=== PATIENT | female | born 1945 | race Caucasian/White ===

== ENCOUNTER → 2016-05-07 | Outpatient (CLI) | payer BC ==
[~2016-05-07] MED LIST: ALBU1AER9 INH; ALBU1NEB10 INH; ALLERGY SHOTS; BXN500 PO; CETI10TA84 PO; EPP3/2 IM; FLUT0.0529 NAE; GLC/500 PO; GLIM1TAB2 PO; MESA1CAP2 PO; OMAL150S SC; PRED10TA PO; PRLSR20 PO; SIMV20TA2 PO; SNG10 PO; SYMIN160 INH; TIOTCAP INH; ZNTT/150 PO
[2016-05-07 11:16] LABS: ALT/SGPT 33 U/L (12-78); AST/SGOT 17 U/L (15-37); BLOOD UREA NITROGEN 15 mg/dl (7-18); BUN/CREATININE RATIO 15.7 (10-20); CALCIUM 8.7 mg/dl (8.5-10.1); CARBON DIOXIDE 32 mmol/L (21-32); CHLORIDE 103 mmol/L (98-107); CREATININE 0.96 mg/dl (0.60-1.20); GLUCOSE 113 mg/dl (70-99); POTASSIUM 3.8 mmol/L (3.5-5.1); SODIUM 143 mmol/L (136-145)
[2016-05-07 11:19] LABS: CHOLESTEROL 190 mg/dl (0-200); CHOLESTEROL/HDL RATIO 2.6; HDL CHOLESTEROL 72 mg/dl; LDL CHOLESTEROL CALCULATED 82 mg/dl; TRIGLYCERIDES 182 mg/dl (0-150); VERY LOW DENSITY LIPOPROT CALC 36 mg/dl
[2016-05-07 11:37] LABS: ESTIMATED AVERAGE GLUCOSE 174 mg/dl; HA1C FLAG Normal (Normal)
== END | disposition home or self-care (01) ==
LOC: C.LABBC 07:43
PROVIDERS: ATTEND Internal Medicine
DX: Z11.59 Encounter for screening for other viral diseases (principal); E11.9 Type 2 diabetes mellitus without complications; E78.00 Pure hypercholesterolemia, unspecified

== ENCOUNTER → 2016-07-02 | Outpatient (CLI) | payer BC ==
--- NOTE | 2016-07-02 13:04 | MAMMOGRAPHY REPORT ---
BILATERAL DIGITAL SCREENING MAMMOGRAM WITH CAD: 07/02/2016 CLINICAL HISTORY: Routine screening. Patient has no complaints. TECHNIQUE: Current study was also evaluated with a Computer Aided Detection (CAD) system. Bilatera l CC and MLO views were obtained. COMPARISON: Comparison is made to exams dated: 07/01/2015 mammogram, 06/27/2014 mammogram, 06/26/2013 mammogram, 06/22/2012 mammogram, 06/22/2011 mammogram, and 06/19/2010 mammogram - [facility] enter. BREAST COMPOSITION: There are scattered areas of fibroglandular density in both breasts. FINDINGS: No suspicious masses, calcifications, or areas of architectural distortion are noted in e ither breast. There has been no significant interval change compared to prior exams. Scattered bilat eral benign-appearing calcifications are not significantly changed. Left superior breast asymmetry on the MLO view is stable dating back to the 2007 exam. IMPRESSION: ACR BI-RADS CATEGORY 2: BENIGN There is no mammographic evidence of malignancy. A 1 year screening mammogram is recommended. The p atient will receive written notification of the results. Approximately 10% of breast cancers are not detected with mammography. A negative mammographic repor t should not delay biopsy if a clinically suggestive mass is present. Vi Orozco M.D. /:07/02/2016 10:21:39 Green Coffee Blender: Yoselin FERNANDEZ(Marcello)(Cuca), [facility] letter sent: Normal 1/2 BI-RADS Code: ACR BI-RADS Category 2: Benign
== END | disposition home or self-care (01) ==
LOC: C.MAMM 09:54
PROVIDERS: ATTEND Internal Medicine
DX: Z12.31 Encounter for screening mammogram for malignant neoplasm of breast (principal)

== ENCOUNTER → 2016-08-21 | Outpatient (CLI) | payer BC ==
[2016-08-21 10:54] LABS: BASO % 0.9 %; BASO ABS # 0.07 K/uL (0-0.2); COMPLETE YES; EOS % 3.3 %; IG% 0.4 %; LYMPH % 21.1 %; LYMPH ABS # 1.66 K/uL (1.2-3.4); MEAN CELL VOLUME 94.6 fL (80-100); MEAN CORPUSCULAR HEMOGLOBIN 29.2 pg (25-34); MEAN CORPUSCULAR HGB CONC 30.9 g/dl (32-36); MEAN PLATELET VOLUME 10.5 fL (7.4-10.4); MONO % 11.6 %; NEUT % 62.7 %; PLATELET COUNT 261 K/uL (130-400); RED BLOOD COUNT 4.65 M/uL (4.2-5.4); WHITE BLOOD COUNT 7.87 K/uL (4.8-10.8)
[2016-08-21 11:17] LABS: ALT/SGPT 27 U/L (12-78); AST/SGOT 17 U/L (15-37); BLOOD UREA NITROGEN 16 mg/dl (7-18); BUN/CREATININE RATIO 20.2 (10-20); CALCIUM 8.5 mg/dl (8.5-10.1); CARBON DIOXIDE 29 mmol/L (21-32); CHLORIDE 107 mmol/L (98-107); CREATININE 0.79 mg/dl (0.60-1.20); GLUCOSE 101 mg/dl (70-99); POTASSIUM 3.5 mmol/L (3.5-5.1); SODIUM 144 mmol/L (136-145)
[2016-08-21 11:33] LABS: ESTIMATED AVERAGE GLUCOSE 146 mg/dl; HA1C FLAG Normal (Normal)
[2016-08-21 11:34] LABS: RATIO 5.1 mcg/mg (0-30.0)
--- NOTE | 2016-08-27 09:01 | CODING QUERY MEDICAL NECESSITY ---
CQSUPPORTING DIAGNOSIS NEEDED A supporting diagnosis is required for the test/procedure performed on this patient in order for us to be reimbursed by the patient's insurance. Please provide a supporting diagnosis for the following test/procedure listed below next to the test name along with your signature. *If there is no additional diagnosis for this patient that would support the following test/procedure please document that below next to the test/procedure. Test(s)/Procedure(s) that require a supporting diagnosis: DOS 08/21/16 VITAMIN B12 Provider Signature: Date: Thank you Isis Lester [employer] Information Management Once completed, please kindly fax back to [phone] For questions please call [phone]
--- NOTE | 2016-08-27 09:42 | CODING QUERY MEDICAL NECESSITY ---
CQSUPPORTING DIAGNOSIS NEEDED A supporting diagnosis is required for the test/procedure performed on this patient in order for us to be reimbursed by the patient's insurance. Please provide a supporting diagnosis for the following test/procedure listed below next to the test name along with your signature. *If there is no additional diagnosis for this patient that would support the following test/procedure please document that below next to the test/procedure. Test(s)/Procedure(s) that require a supporting diagnosis: DOS 08/21/16 VITAMIN B12 Provider Signature: Date: Thank you Isis Lester [email or web address] Information Management Once completed, please kindly fax back to [phone] For questions please call [phone]
== END | disposition home or self-care (01) ==
LOC: C.LABBC 07:40
PROVIDERS: ATTEND Internal Medicine
DX: E11.9 Type 2 diabetes mellitus without complications (principal); K51.90 Ulcerative colitis, unspecified, without complications

== ENCOUNTER → 2016-09-07 | Outpatient (CLI) | payer BC ==
[2016-09-07 11:36] LABS: ESTIMATED AVERAGE GLUCOSE 143 mg/dl; HA1C FLAG Normal (Normal)
[2016-09-07 11:49] LABS: IMMUNOGLOBULN M 88.4 mg/dL (40-230)
[2016-09-10 19:43] LABS: PNEUMOCOCCAL IGG TYPE 1 3.9; PNEUMOCOCCAL IGG TYPE 12(12F 1.1; PNEUMOCOCCAL IGG TYPE 14 6.7; PNEUMOCOCCAL IGG TYPE 19(19F 2.1; PNEUMOCOCCAL IGG TYPE 23(23F 5.8; PNEUMOCOCCAL IGG TYPE 26 (6B 2.7; PNEUMOCOCCAL IGG TYPE 3 6.4; PNEUMOCOCCAL IGG TYPE 4 2.2; PNEUMOCOCCAL IGG TYPE 5 12.5; PNEUMOCOCCAL IGG TYPE 51 (7F 5.1; PNEUMOCOCCAL IGG TYPE 56(18C 1.5; PNEUMOCOCCAL IGG TYPE 68 (9V 13.2; PNEUMOCOCCAL IGG TYPE 8 2.2; PNEUMOCOCCAL IGG TYPE 9 (9N) 14.8
--- NOTE | 2016-09-14 09:53 | CODING QUERY MEDICAL NECESSITY ---
CQSUPPORTING DIAGNOSIS NEEDED A supporting diagnosis is required for the test/procedure performed on this patient in order for us to be reimbursed by the patient's insurance. Please provide a supporting diagnosis for the following test/procedure listed below next to the test name along with your signature. *If there is no additional diagnosis for this patient that would support the following test/procedure please document that below next to the test/procedure. Test(s)/Procedure(s) that require a supporting diagnosis: DOS 09/07/16 GLYCATED HEMOGLOBIN Provider Signature: Date: Thank you Isis Lester [employer] Information Management Once completed, please kindly fax back to [phone] For questions please call [phone]
== END | disposition home or self-care (01) ==
LOC: C.LABBC 07:40
PROVIDERS: ATTEND Internal Medicine Pulmonary Disease
DX: J45.909 Unspecified asthma, uncomplicated (principal); J30.81 Allergic rhinitis due to animal (cat) (dog) hair and dander; J30.89 Other allergic rhinitis; J30.1 Allergic rhinitis due to pollen; E11.9 Type 2 diabetes mellitus without complications

== ENCOUNTER → 2016-12-15 | Outpatient (CLI) | payer BC ==
--- NOTE | 2016-12-15 10:21 | DIAGNOSTIC IMAGING REPORT ---
(CHEST) THORAX WITHOUT CLINICAL HISTORY: 71 years-old Female presenting with ASTHMA,ALLERGIC RHINITIS,LUNG INFECTIONS. TECHNIQUE: Multidetector CT imaging of the chest was performed without the use of intravenous contrast. IV contrast: None. A dose lowering technique was used consistent with the principles of ALARA (as low as reasonably achievable). COMPARISON: 04/26/2014. CT DOSE (mGy.cm): The estimated cumulative dose is 431.55 mGy.cm. 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 On soft tissue windows, normal thyroid and thoracic inlet. No axillary, supraclavicular, or mediastinal lymphadenopathy. Evaluation of the yasmin limited without intravenous contrast. Atherosclerosis of aortic arch. Normal heart size. Coronary artery calcification. No pericardial or pleural effusion. Cholelithiasis. Suspected hepatic steatosis. Small hiatal hernia. On lung windows, few bandlike opacities at the lung bases likely atelectasis or scarring. Subpleural solid 5 mm nodule in the paramediastinal left lower lobe (series 4 image 178). No convincing evidence of fibrotic change. No bronchiectasis. Mild bronchial wall thickening most prominently in the posterior basal right lower lobe. Respiratory motion at the lung bases slightly degrades evaluation. Several calcified granulomas noted in the right middle lobe. On bone windows, degenerative changes of the thoracic spine. IMPRESSION: 1. Few bandlike opacities at the lung bases likely atelectasis or scarring. No evidence of fibrotic lung disease. 2. 5 mm solid pulmonary nodule in the left lower lobe. Follow-up per [place] Society 2017 recommendations below. 3. Mild bronchial wall thickening. 4. Suspected hepatic steatosis. Please refer to below summary of Fleischner Society 2017 recommendations for follow-up of incidental CT nodules (H Rosa M et al. Guidelines for management of incidental pulmonary nodules detected on CT images: From the Fleischner Society 2017. Radiology 2017; 284: 228-243.) SOLID NODULES Single nodule; size < 6 mm * Low risk patients: No routine follow-up * High risk patients: Optional CT at 12 months Single nodule; size 6-8 mm * Low risk patients: CT at 6-12 months, then consider CT at 18-24 months * High risk patients: CT at 6-12 months, then at 18-24 months Single nodule; size > 8 mm * Either low or high risk patients: Considered CT at 3 months, PET/CT, or tissue sampling Multiple nodules; size < 6 mm * Low risk patients: No routine follow up * High risk patients: Optional CT at 12 months Multiple nodules; size 6-8 mm * Low risk patients: CT at 3-6 months, then consider CT at 18-24 months * High risk patients: CT at 3-6 months, then at 18-24 months Multiple nodules; size > 8 mm * Low risk patients: CT at 3-6 months, then consider at 18-24 months * High risk patients: CT at 3-6 months, then at 18-24 months Note: These guidelines apply to incidental nodules. These guidelines do not apply to patients younger than 35 years, immunocompromised patients, or patients with cancer. * Low risk patients: Minimal or absent history of smoking and/or other known risk factors * High risk patients: History of smoking, exposure to other carcinogens, emphysema, fibrosis, upper lobe location, family history of lung cancer, etc. * If a nodule up to 8 mm is partly solid or is ground glass, further follow-up is required after 24 months to exclude possible slow growing adenocarcinoma. SUBSOLID NODULES Single ground-glass nodule * Nodule size < 6 mm: No routine follow-up * Nodule size > or = 6 mm: CT at 6-12 months to confirm persistence, then CT every 2 years until 5 years Single part-solid nodule * Nodule size < 6 mm: No routine follow-up * Nodules size > or = 6 mm: CT at 3-6 months to confirm persistence. If unchanged and solid component remains < 6 mm, annual CT should be performed for 5 years Multiple nodules * Nodule size < 6 mm: CT at 3-6 months. If stable, consider CT at 2 and 4 years. * Nodules size > or = 6 mm: CT at 3-6 months. Subsequent management based on the most suspicious nodule(s) Electronically signed by: Guzman Centeno M.D. 12/15/2016 10:20 AM Dictated Date/Time: 12/15/2016 10:14 AM
== END | disposition home or self-care (01) ==
LOC: C.CTS 10:01
PROVIDERS: ATTEND Internal Medicine Allergy & Immunology
DX: R91.1 Solitary pulmonary nodule (principal); J84.9 Interstitial pulmonary disease, unspecified

== ENCOUNTER → 2016-12-22 | Outpatient (CLI) | payer BC ==
[2016-12-22 11:02] LABS: BASO % 1.1 %; BASO ABS # 0.12 K/uL (0-0.2); COMPLETE YES; EOS % 17.4 %; HEMATOCRIT 41.6 % (37-47); IG% 0.4 %; LYMPH % 13.3 %; MEAN CELL VOLUME 91.6 fL (80-100); MEAN CORPUSCULAR HEMOGLOBIN 29.5 pg (25-34); MEAN CORPUSCULAR HGB CONC 32.2 g/dl (32-36); MEAN PLATELET VOLUME 10.3 fL (7.4-10.4); MONO % 9.2 %; NEUT % 58.6 %; PLATELET COUNT 274 K/uL (130-400); RED BLOOD COUNT 4.54 M/uL (4.2-5.4); WHITE BLOOD COUNT 10.49 K/uL (4.8-10.8)
[2016-12-22 11:13] LABS: ALT/SGPT 27 U/L (12-78); BLOOD UREA NITROGEN 13 mg/dl (7-18); BUN/CREATININE RATIO 18.6 (10-20); CALCIUM 8.9 mg/dl (8.5-10.1); CARBON DIOXIDE 28 mmol/L (21-32); CHLORIDE 106 mmol/L (98-107); CHOLESTEROL 142 mg/dl (0-200); ESTIMATED AVERAGE GLUCOSE 148 mg/dl; GLUCOSE 115 mg/dl (70-99); HA1C FLAG Normal (Normal); POTASSIUM 3.4 mmol/L (3.5-5.1); SODIUM 139 mmol/L (136-145); TRIGLYCERIDES 140 mg/dl (0-150); VERY LOW DENSITY LIPOPROT CALC 28 mg/dl
[2016-12-22 11:17] LABS: ALKALINE PHOSPHATASE 66 U/L (45-117); AST/SGOT 23 U/L (15-37); HDL CHOLESTEROL 47 mg/dl; LDL CHOLESTEROL CALCULATED 67 mg/dl
== END | disposition home or self-care (01) ==
LOC: C.LABBC 08:12
PROVIDERS: ATTEND Internal Medicine
DX: E78.00 Pure hypercholesterolemia, unspecified (principal); K51.90 Ulcerative colitis, unspecified, without complications; E11.9 Type 2 diabetes mellitus without complications

== ENCOUNTER → 2017-04-01 | Outpatient (CLI) | payer BC ==
[2017-04-01 11:16] LABS: HEMOGLOBIN A1C 7.3 % (4.5-5.6)
[2017-04-01 11:29] LABS: BLOOD UREA NITROGEN 14 mg/dl (7-18); CALCIUM 8.5 mg/dl (8.5-10.1); CARBON DIOXIDE 30 mmol/L (21-32); CREATININE 0.85 mg/dl (0.60-1.20); GLUCOSE 122 mg/dl (70-99); POTASSIUM 3.9 mmol/L (3.5-5.1); SODIUM 139 mmol/L (136-145)
== END | disposition home or self-care (01) ==
LOC: C.LABBC 07:48
PROVIDERS: ATTEND Internal Medicine
DX: E11.9 Type 2 diabetes mellitus without complications (principal)

== ENCOUNTER → 2017-06-17 | Outpatient (CLI) | payer BC ==
[~2017-06-17] MED LIST changes: +RANI150T85 PO; -ZNTT/150 PO
--- NOTE | 2017-06-17 11:35 | DIAGNOSTIC IMAGING REPORT ---
CHEST 2 VIEWS ROUTINE CLINICAL HISTORY: Pneumonia. COMPARISON STUDY: Chest radiograph May 04, 2017. FINDINGS: Lung volumes are normal. No pneumothorax or pleural effusion is noted. There is no evidence for pulmonary edema. Cardiomediastinal silhouette is normal. Hazy bibasilar opacities favor epicardial fat pad within correlating with prior CT. Left lower lung opacity shown on exam of May 04, 2017 is no longer visualized. IMPRESSION: 1. No acute cardiopulmonary findings. 2. Resolution of left lower lung airspace opacity since exam of May 04, 2017. Electronically signed by: Shawn Thomas M.D. 06/17/2017 11:34 AM Dictated Date/Time: 06/17/2017 11:32 AM
== END | disposition home or self-care (01) ==
LOC: C.RAD1850 11:22
PROVIDERS: ATTEND Physician Assistant
DX: J18.9 Pneumonia, unspecified organism (principal)

== ENCOUNTER → 2017-06-23 | Outpatient (CLI) | payer BC ==
[2017-06-23 11:06] LABS: BASO % 0.4 %; BASO ABS # 0.04 K/uL (0-0.2); EOS % 3.9 %; EOS ABS # 0.44 K/uL (0-0.5); HEMATOCRIT 43.5 % (37-47); IG# 0.07 K/uL (0.00-0.02); LYMPH % 28.2 %; LYMPH ABS # 3.17 K/uL (1.2-3.4); MEAN CORPUSCULAR HEMOGLOBIN 30.2 pg (25-34); MEAN CORPUSCULAR HGB CONC 32.2 g/dl (32-36); MEAN PLATELET VOLUME 10.2 fL (7.4-10.4); MONO % 12.4 %; MONO ABS # 1.39 K/uL (0.11-0.59); NEUT % 54.5 %; NEUT ABS # 6.13 K/uL (1.4-6.5); PLATELET COUNT 258 K/uL (130-400); RED CELL DISTRIBUTION WIDTH CV 14.3 % (11.5-14.5); WHITE BLOOD COUNT 11.24 K/uL (4.8-10.8)
[2017-06-23 11:49] LABS: ALT/SGPT 35 U/L (12-78); AST/SGOT 18 U/L (15-37); BLOOD UREA NITROGEN 15 mg/dl (7-18); CARBON DIOXIDE 30 mmol/L (21-32); CREATININE 0.93 mg/dl (0.60-1.20); GLUCOSE 104 mg/dl (70-99); POTASSIUM 3.6 mmol/L (3.5-5.1); SODIUM 138 mmol/L (136-145)
[2017-06-23 11:50] LABS: CHOLESTEROL 171 mg/dl (0-200); LDL CHOLESTEROL CALCULATED 73 mg/dl
== END | disposition home or self-care (01) ==
LOC: C.LABBC 07:24
PROVIDERS: ATTEND Internal Medicine
DX: E11.9 Type 2 diabetes mellitus without complications (principal); E78.00 Pure hypercholesterolemia, unspecified; K51.90 Ulcerative colitis, unspecified, without complications

== ENCOUNTER → 2017-07-06 | Outpatient (CLI) | payer BC ==
--- NOTE | 2017-07-07 15:29 | MAMMOGRAPHY REPORT ---
BILATERAL DIGITAL SCREENING MAMMOGRAM TOMOSYNTHESIS WITH CAD: 07/06/2017 CLINICAL HISTORY: Routine screening. TECHNIQUE: Breast tomosynthesis in addition to standard 2D mammography was performed. Current study was also evaluated with a Computer Aided Detection (CAD) system. COMPARISON: Comparison is made to exams dated: 07/02/2016 mammogram, 07/01/2015 mammogram, 06/27/2014 m ammogram, 06/26/2013 mammogram, 06/22/2012 mammogram, and 06/22/2011 mammogram - [facility] nter. BREAST COMPOSITION: There are scattered areas of fibroglandular density in both breasts. FINDINGS: No suspicious mass, architectural distortion or cluster of microcalcifications is seen. IMPRESSION: ACR BI-RADS CATEGORY 1: NEGATIVE There is no mammographic evidence of malignancy. A 1 year screening mammogram is recommended. The pa tient will receive written notification of the results. Approximately 10% of breast cancers are not detected with mammography. A negative mammographic report should not delay biopsy if a clinically suggestive mass is present. Fabiola montalvo/iftikhar:07/06/2017 16:03:26 Trolley Worker: Tim Mccain RT(R)(M), [facility] letter sent: Normal 1/2 BI-RADS Code: ACR BI-RADS Category 1: Negative
== END | disposition home or self-care (01) ==
LOC: C.MAMM 09:50
PROVIDERS: ATTEND Internal Medicine
DX: Z12.31 Encounter for screening mammogram for malignant neoplasm of breast (principal)

== ENCOUNTER 2017-07-20 15:11 | Inpatient (IN) | payer BC, OTHER ==
[~2017-07-20] VITALS: Ht 157.5 cm; Wt 85.5 kg
[2017-07-20] MEDS ORDERED: METHYLPREDNISOLONE 125 MG VIAL IV STA (15:26)
[2017-07-20] MEDS ORDERED: ALBUT/IPRATROP 3MG/0.5MG NEB 3 ML VIAL INH ONE (15:30)
--- NOTE | 2017-07-20 15:55 | DIAGNOSTIC IMAGING REPORT ---
CHEST ONE VIEW PORTABLE HISTORY: 71 years-old Female productive cough SOB hx asthma acute cough with asthma COMPARISON: Chest radiograph 06/17/2017 TECHNIQUE: Portable AP view of the chest FINDINGS: Cardiomediastinal and hilar silhouettes are within normal limits. No pneumothorax or pleural effusion. Subsegmental left basilar opacities. Bones of the chest appear grossly intact. Degenerative changes of the shoulders and spine. IMPRESSION: Subsegmental left basilar opacities favor atelectasis. The above report was generated using voice recognition software. It may contain grammatical, syntax or spelling errors. Electronically signed by: Usama Garcia M.D. 07/20/2017 3:54 PM Dictated Date/Time: 07/20/2017 3:53 PM
[2017-07-20] MEDS ORDERED: FLUT1INH7 INH (16:31)
[2017-07-20] MEDS ORDERED: LEVO1TAB33 PO (16:31)
[2017-07-20] MEDS ORDERED: SPRIN/30 INH (16:31)
[2017-07-20] MEDS ORDERED: SIMV-151 PO (16:31)
[2017-07-20] MEDS ORDERED: RANI150T2 PO (16:31)
[2017-07-20] MEDS ORDERED: ALBINS/ INH (16:31)
[2017-07-20] MEDS ORDERED: NZRCR TOP (16:31)
[2017-07-20] MEDS ORDERED: FLNIN/ NAE (16:31)
[2017-07-20] MEDS ORDERED: CYAN100T PO (16:31)
[2017-07-20] MEDS ORDERED: ALBUTEROL 90 MCG INH (16:31)
[2017-07-20] MEDS ORDERED: NYST100016 TOP (16:31)
[2017-07-20] MEDS ORDERED: OMEP20CA9 PO (16:31)
[2017-07-20] MEDS ORDERED: ASC400 PO (16:31)
[2017-07-20 16:44] LABS: HEMATOCRIT 41.9 % (37-47); HEMOGLOBIN 13.7 g/dL (12.0-16.0); MEAN CELL VOLUME 91.9 fL (80-100); MEAN CORPUSCULAR HGB CONC 32.7 g/dl (32-36); MEAN PLATELET VOLUME 9.8 fL (7.4-10.4); PLATELET COUNT 247 K/uL (130-400); RED CELL DISTRIBUTION WIDTH CV 13.9 % (11.5-14.5); WHITE BLOOD COUNT 10.43 K/uL (4.8-10.8)
[2017-07-20 16:48] VITALS: PULSE 77; O2SAT 94
[2017-07-20] MEDS ORDERED: MAGNESIUM SULFATE 1GM / D5W 100 ML IV STA (16:53)
[2017-07-20] MEDS ORDERED: CEFTRIAXONE SOD INJ 1 GM ADDVIAL IV STA (16:56)
[2017-07-20 16:58] LABS: INFLUENZA B ANTIGEN POS for Influ B (NEG)
[2017-07-20] MEDS ORDERED: AZITHROMYCIN IV 500 MG in DEXTROSE 5% 250ML 250 ML IV ONE (17:00)
[2017-07-20 17:03] LABS: BASO % 0.1 %; BASO ABS # 0.01 K/uL (0-0.2); CALCIUM 8.8 mg/dl (8.5-10.1); CREATININE 0.86 mg/dl (0.60-1.20); IG# 0.04 K/uL (0.00-0.02); LYMPH % 9.1 %; LYMPH ABS # 0.95 K/uL (1.2-3.4); MONO % 12.4 %; MONO ABS # 1.29 K/uL (0.11-0.59); NEUT ABS # 8.14 K/uL (1.4-6.5); POTASSIUM 3.3 mmol/L (3.5-5.1)
[2017-07-20] MEDS ORDERED: MEPO1INJ INJ (17:04)
[2017-07-20] MEDS ORDERED: MONT1TAB3 PO (17:05)
[2017-07-20] MEDS ORDERED: POTASSIUM CHLORIDE 10 MEQ TABCR PO STA (17:07)
--- NOTE | 2017-07-20 17:19 | EMERGENCY ROOM VISIT NOTE ---
History First contact with patient: 15:16 Chief Complaint: SHORTNESS OF BREATH Stated Complaint: SOB, COUGHING, LOW OXYGEN LEVEL History of Present Illness The patient is a 71 year old female who presents to the Emergency Room with complaints of cough that is occasionally productive and shortness of breath for the last 3 days. The patient is unsure if she is running a fever. She has a history of asthma. She has been trying her nebulizer treatment and typical asthma medications with no relief. She is not typically on any oxygen at home. She denies any recent admission to the hospital for her asthma. She has been taking Levaquin and prednisone for the last 3 days with no relief. Review of Systems 10 system review performed and negative unless noted in HPI or below Past Medical/Surgical History Medical Problems: (1) Asthma (2) Bronchitis (3) Pneumonia Diabetes Family History FH: HTN (hypertension) FH: cancer FH: diabetes mellitus FHx: gallbladder disease FHx: heart disease Social History Smoking Status: Never Smoker Alcohol Use: none Marital Status: Housing Status: lives with family Occupation Status: unemployed Current/Historical Medications Scheduled Cetirizine (Zyrtec), 10 MG PO QAM Cyanocobalamin (Vitamin B-12), 1 TAB PO DAILY Fluticasone Furoate-Vilanterol (Breo Ellipta 200-25 Mcg/INH), 1 PUFF INH DAILY Fluticasone Propionate (Fluticasone Propionate), 1-2 SPRAY ESTEFANÍA DAILY Glimepiride (Glimepiride), 1 MG PO Q12 Mepolizumab (Nucala), 1 DOSE INJ MONTHLY Mesalamine (Delzicol), 800 MG PO QID Metformin Hcl (Glucophage), 500 MG PO BIDM Metformin Hcl (Glucophage), 1,000 MG PO DAILY Montelukast Sodium (Singulair), 10 MG PO DAILY Nystatin (Topical) (Nyamyc), 1 APPLN TOP 2-3XSDAY Omeprazole (Prilosec), 20 MG PO DAILY Prednisone Tab (Prednisone), PO TAPER PRN Ranitidine HCl (Ranitidine HCl), 150 MG PO BID Simvastatin (Simvastatin), 20 MG PO DAILY Tiotropium Roscoe (Spiriva Handihaler), 1 CAP INH DAILY Scheduled PRN Albuterol Sulf (Proventil 0.083% 2.5MG/3ML), 2.5 MG INH QID PRN for SOB/Wheezing Ketoconazole (Ketoconazole), 1 APPLN TOP DAILY PRN for Levofloxacin (Levaquin), 500 MG PO DAILY PRN for CONGESTION [Proair 90 Mcg Act], 2 PUFF INH Q4 PRN for SOB/Wheezing Physical Exam Vital Signs Date Time Temp Pulse Resp B/P (MAP) Pulse Ox O2 Delivery O2 Flow Rate FiO2 07/20/17 17:49 115 20 164/86 94 Nasal Cannula 3.0 07/20/17 17:38 95 Nasal Cannula 2.0 07/20/17 17:37 87 Room Air 07/20/17 16:48 77 20 94 Room Air 07/20/17 16:15 115 07/20/17 16:11 121 143/95 96 Room Air 07/20/17 15:56 97 Partial Rebreather 07/20/17 15:56 98 07/20/17 15:14 37.1 115 22 155/85 88 Room Air Physical Exam GENERAL: 71-year-old female, obviously tachypneic, in mild respiratory distress SKIN: The skin was without rashes, erythema, edema, or bruising. HEAD: Normocephalic atraumatic. MOUTH: Mucous membranes slightly dry NECK: Supple without nuchal rigidity. No lymphadenopathy. Cervical spine is nontender. No JVD. HEART: Regular rate and rhythm without murmurs gallops or rubs. LUNGS: Diffuse wheeze with rhonchorous breath sounds at the bases left greater than right ABDOMEN: Positive bowel sounds x 4.Soft, nontender, without organomegaly. No guarding or rebound tenderness. MUSCULOSKELETAL: No muscle atrophy, erythema, or edema noted. Strength 5/5 throughout. NEURO: Patient was alert and oriented to person place and time. Normal sensation to touch. No focal neurological deficits. Medical Decision & Procedures ER Provider Diagnostic Interpretation: Chest x-ray IMPRESSION: Subsegmental left basilar opacities favor atelectasis. The above report was generated using voice recognition software. It may contain grammatical, syntax or spelling errors. Electronically signed by: Usama Garcia M.D. 07/20/2017 3:54 PM Dictated Date/Time: 07/20/2017 3:53 PM Laboratory Results 07/20/17 16:25 Red Blood Count 4.56, Mean Corpuscular Volume 91.9, Mean Corpuscular Hemoglobin 30.0, Mean Corpuscular Hemoglobin Concent 32.7, Mean Platelet Volume 9.8, Neutrophils (%) (Auto) 78.0, Lymphocytes (%) (Auto) 9.1, Monocytes (%) (Auto) 12.4, Eosinophils (%) (Auto) 0.0, Basophils (%) (Auto) 0.1, Neutrophils # (Auto ) 8.14, Lymphocytes # (Auto) 0.95, Monocytes # (Auto) 1.29, Eosinophils # (Auto ) 0.00, Basophils # (Auto) 0.01 07/20/17 16:25 Test 07/20/17 16:12 07/20/17 16:25 Influenza Type A Antigen Neg for Influ A (NEG) Influenza Type B Antigen POS for Influ B (NEG) White Blood Count 10.43 K/uL (4.8-10.8) Red Blood Count 4.56 M/uL (4.2-5.4) Hemoglobin 13.7 g/dL (12.0-16.0) Hematocrit 41.9 % (37-47) Mean Corpuscular Volume 91.9 fL (80-100) Mean Corpuscular Hemoglobin 30.0 pg (25-34) Mean Corpuscular Hemoglobin Concent 32.7 g/dl (32-36) Platelet Count 247 K/uL (130-400) Mean Platelet Volume 9.8 fL (7.4-10.4) Neutrophils (%) (Auto) 78.0 % Lymphocytes (%) (Auto) 9.1 % Monocytes (%) (Auto) 12.4 % Eosinophils (%) (Auto) 0.0 % Basophils (%) (Auto) 0.1 % Neutrophils # (Auto) 8.14 K/uL (1.4-6.5) Lymphocytes # (Auto) 0.95 K/uL (1.2-3.4) Monocytes # (Auto) 1.29 K/uL (0.11-0.59) Eosinophils # (Auto) 0.00 K/uL (0-0.5) Basophils # (Auto) 0.01 K/uL (0-0.2) RDW Standard Deviation 47.0 fL (36.4-46.3) RDW Coefficient of Variation 13.9 % (11.5-14.5) Immature Granulocyte % (Auto) 0.4 % Immature Granulocyte # (Auto) 0.04 K/uL (0.00-0.02) Anion Gap 9.0 mmol/L (3-11) Est Creatinine Clear Calc Drug Dose 63.0 ml/min Estimated GFR () 79.9 Estimated GFR (Non- 68.9 BUN/Creatinine Ratio 19.7 (10-20) Calcium Level 8.8 mg/dl (8.5-10.1) Medications Administered Medications (Trade) Dose Ordered Sig/Julee Route Start Time Stop Time Status Last Admin Dose Admin Albuterol/ Ipratropium (Duoneb) 12 ml ONE ONCE INH 07/20/17 15:30 07/20/17 15:31 DC 07/20/17 15:41 12 ML Methylprednisolone Sodium Succinate (Solu-Medrol IV) 125 mg NOW STAT IV 07/20/17 15:26 07/20/17 15:29 DC 07/20/17 16:18 125 MG Magnesium Sulfate 100 ml @ 100 mls/hr NOW STAT IV 07/20/17 16:53 07/20/17 17:52 DC 07/20/17 17:44 100 MLS/HR Azithromycin 500 mg/Dextrose 255 ml @ 125 mls/hr ONE ONCE IV 07/20/17 17:00 07/20/17 19:02 07/20/17 17:50 125 MLS/HR Ceftriaxone Sodium (Rocephin Inj) 1 gm NOW STAT IV 07/20/17 16:56 07/20/17 16:57 DC 07/20/17 17:43 1 GM Potassium Chloride (Klor-Con M10) 40 meq NOW STAT PO 07/20/17 17:07 07/20/17 17:08 DC 07/20/17 17:43 40 MEQ ED Course Patient was seen and examined Vital signs including blood pressure were reviewed medications list was verified with patient Labs were obtained, and a saline lock was established The patient was given an hour-long DuoNeb. She was medicated with Solu-Medrol 125 mg IV. Upon reassessment, she was still having difficulty breathing. She was ordered mag sulfate 1 g over 20 minutes The patient was ordered Zithromax 500 mg IV and Rocephin 1 g IV line the case was discussed with my supervising physician, who is in agreement with my plan It was subsequently discussed with case management and the [facility] team. They agreed to evaluate the patient for further management Medical Decision Differential diagnosis: Bronchitis, pneumonia, asthma exacerbation, allergies, influenza This patient is a 71-year-old female that presents to the emergency department with complaints of difficulty breathing and productive cough. On exam, she was obviously tachypneic and hypoxic on room air. She had rhonchi and wheezing. The patient's workup reveals a positive influenza B. I also believe she has pneumonia. The patient was treated aggressively in the emergency department, and still desaturated with ambulation. I do not feel comfortable sending this patient home. The [facility] kindly agreed to evaluate the patient for admission. This chart was completed in part utilizing [employer] Speech Voice Recognition software. Attempts were made to minimize the grammatical errors, random word insertions, pronoun errors and incomplete sentences. Any formal questions or concerns about the content, text or information contained within the body of this dictation should be directly addressed to the provider for clarification. Medication Reconcilliation Current Medication List: was personally reviewed by me Consults Consulting Physician: [facility] Impression Primary Impression: Influenza B Departure Information Referrals Pro,Dimitri Conley M.D. (PCP) Patient Instructions My [facility]
[2017-07-20] MEDS ORDERED: POLYETHYLENE (MIRALAX) 17 GM PACK PO PRN (18:45)
[2017-07-20] MEDS ORDERED: ALUMINUM/MAGNESIUM/SIMETH (MAALOX MAX) 30 ML UDC PO PRN (18:45)
[2017-07-20] MEDS ORDERED: MAGNESIUM HYDROXIDE SUSP 30 ML UDC PO PRN (18:45)
[2017-07-20] MEDS ORDERED: ACETAMINOPHEN 325 MG TAB PO PRN (18:45)
[2017-07-20] MEDS ORDERED: ONDANSETRON INJ 2 MG/ML 2 ML VIAL IV PRN (18:45)
[2017-07-20] MEDS ORDERED: GLUCOSE 40% GEL 15 GM TUBE PO PRN (19:30)
[2017-07-20] MEDS ORDERED: GLUCAGON FOR INJ 1 MG VIAL SQ PRN (19:30)
[2017-07-20] MEDS ORDERED: DEXTROSE 50% 50 ML SYR IV PRN (19:30)
[2017-07-20] MEDS ORDERED: CARBOHYDRATES FOR HYPOGLYCEMIA PO PRN (19:30)
[2017-07-20] MEDS ORDERED: GLUCOSE 10 TABS/TUBE PO PRN (19:30)
--- NOTE | 2017-07-20 19:43 | History and Physical ---
History & Physical Date & Time of Service: July 20, 2017 at 19:33 Chief Complaint: Sob, Coughing, Low Oxygen Level Primary Care Physician: Dimitri Gomez M.D. History of Present Illness Source: patient Ms. Hoskins is a 71 y/o female with PMHx of Severe Persistent Asthma - Eosinophilic, Chronic Allergic Rhinitis, Ulcerative Colitis, T2DM, HTN, GERD, and HLD who presents to the ED c/o SOB x Wed/Wednesday. Patient reports she has had poorly controlled asthma and is frequently on Levaquin and Steroids. She currently is taking Levaquin and Prednisone 40 mg daily. She states she began to have some SOB on Wednesday into Wednesday but related this to her normal asthma and took her inhalers/meds as directed. She feels that the symptoms progressively worsened and she presented to the ED. She was in [place] on vacation and flew back early because of these symptoms. She was hypoxic at 87% in the ED with good response to oxygen. She normally does not utilize oxygen. She is Influenza B +. She does not endorse any fever/chills or muscle aches/ fatigue. She reports that over the past couple days her cough has become more dry but does occ. expel mucus. She denies swelling or pain in the calves. Denies CP or pleuritic CP. She recently established with Dr. Cedeno ([facility]) in [place] who started her on Nucala which she had 2 injections in May and June. Isn't due for another until the end of the month. She feels these injections have helped her asthma. She states she was told she may have more of a COPD but reports Dr. Cedeno feels that it is asthma. PFTs from Nov 2016 show early obstructive impairment. Past Medical/Surgical History Medical Problems: (1) Asthma (2) Asthma exacerbation (3) Asthma exacerbation (4) Bronchitis (5) Hyperglycemia (6) Hypoxia (7) Pneumonia Family History FH: HTN (hypertension) FH: cancer FH: diabetes mellitus FHx: gallbladder disease FHx: heart disease Social History Smoking Status: Never Smoker Marital Status: Occupational Status: unemployed Immunizations History of Influenza Vaccine: N/A History of Tetanus Vaccine?: Unknown History of Pneumococcal: Yes History of Hepatitis B Vaccine: Unknown Allergies Coded Allergies: Penicillins (Verified Allergy, Intermediate, HIVES, 07/20/17) Sulfa Drugs (Verified Allergy, Intermediate, HIVES, 07/20/17) Latex1 -Allergic Contact Dermititis (Verified Allergy, Unknown, SENSITIVE , 07/20/17) Home Medications Scheduled Cetirizine (Zyrtec), 10 MG PO QAM Cyanocobalamin (Vitamin B-12), 1 TAB PO DAILY Fluticasone Furoate-Vilanterol (Breo Ellipta 200-25 Mcg/INH), 1 PUFF INH DAILY Fluticasone Propionate (Fluticasone Propionate), 1-2 SPRAY ESTEFANÍA DAILY Glimepiride (Glimepiride), 1 MG PO Q12 Mepolizumab (Nucala), 1 DOSE INJ MONTHLY Mesalamine (Delzicol), 800 MG PO QID Metformin Hcl (Glucophage), 500 MG PO BIDM Metformin Hcl (Glucophage), 1,000 MG PO DAILY Montelukast Sodium (Singulair), 10 MG PO DAILY Nystatin (Topical) (Nyamyc), 1 APPLN TOP 2-3XSDAY Omeprazole (Prilosec), 20 MG PO DAILY Prednisone Tab (Prednisone), PO TAPER PRN Ranitidine HCl (Ranitidine HCl), 150 MG PO BID Simvastatin (Simvastatin), 20 MG PO DAILY Tiotropium [place] (Spiriva Handihaler), 1 CAP INH DAILY Scheduled PRN Albuterol Sulf (Proventil 0.083% 2.5MG/3ML), 2.5 MG INH QID PRN for SOB/Wheezing Ketoconazole (Ketoconazole), 1 APPLN TOP DAILY PRN for Levofloxacin (Levaquin), 500 MG PO DAILY PRN for CONGESTION [Proair 90 Mcg Act], 2 PUFF INH Q4 PRN for SOB/Wheezing Review of Systems Constitutional: No fever, No chills, No fatigue ENT: + nasal symptoms, No sore throat, No trouble swallowing Respiratory: + cough, + sputum (intermittent but largely non-productive cough) , + wheezing, + shortness of breath, No hemoptysis Cardiovascular: No chest pain, No orthopnea Abdomen: No pain, No nausea, No vomiting, No diarrhea, No constipation Musculoskeletal: No swelling, No calf pain Genitourinary - Female: No dysuria Hematologic / Lymphatic: No abnormal bleeding/bruising Integumentary: No rash Physical Exam Vital Signs Date Time Temp Pulse Resp B/P (MAP) Pulse Ox O2 Delivery O2 Flow Rate FiO2 07/20/17 17:49 115 20 164/86 94 Nasal Cannula 3.0 07/20/17 17:38 95 Nasal Cannula 2.0 07/20/17 17:37 87 Room Air 07/20/17 16:48 77 20 94 Room Air 07/20/17 16:15 115 07/20/17 16:11 121 143/95 96 Room Air 07/20/17 15:56 97 Partial Rebreather 07/20/17 15:56 98 07/20/17 15:14 37.1 115 22 155/85 88 Room Air General Appearance: WD/WN, no apparent distress Head: normocephalic, atraumatic Eyes: sclerae normal ENT: hearing grossly normal Neck: supple, no JVD, trachea midline Respiratory/Chest: no respiratory distress, no accessory muscle use, + rhonchi (bases b/l), + wheezing (scattered; expiratory) Cardiovascular: no gallop, no murmur, + tachycardia Abdomen/GI: normal bowel sounds, non tender, soft Extremities/Musculoskelatal: no calf tenderness, no pedal edema Neurologic/Psych: alert, oriented x 3 Skin: normal color, warm/dry Diagnostics Laboratory Results Results Past 24 Hours Test 07/20/17 16:12 07/20/17 16:25 Range/Units Influenza Type A Antigen Neg for Influ A NEG Influenza Type B Antigen POS for Influ B NEG White Blood Count 10.43 4.8-10.8 K/uL Red Blood Count 4.56 4.2-5.4 M/uL Hemoglobin 13.7 12.0-16.0 g/dL Hematocrit 41.9 37-47 % Mean Corpuscular Volume 91.9 80-100 fL Mean Corpuscular Hemoglobin 30.0 25-34 pg Mean Corpuscular Hemoglobin Concent 32.7 32-36 g/dl Platelet Count 247 130-400 K/uL Mean Platelet Volume 9.8 7.4-10.4 fL Neutrophils (%) (Auto) 78.0 % Lymphocytes (%) (Auto) 9.1 % Monocytes (%) (Auto) 12.4 % Eosinophils (%) (Auto) 0.0 % Basophils (%) (Auto) 0.1 % Neutrophils # (Auto) 8.14 1.4-6.5 K/uL Lymphocytes # (Auto) 0.95 1.2-3.4 K/uL Monocytes # (Auto) 1.29 0.11-0.59 K/uL Eosinophils # (Auto) 0.00 0-0.5 K/uL Basophils # (Auto) 0.01 0-0.2 K/uL RDW Standard Deviation 47.0 36.4-46.3 fL RDW Coefficient of Variation 13.9 11.5-14.5 % Immature Granulocyte % (Auto) 0.4 % Immature Granulocyte # (Auto) 0.04 0.00-0.02 K/uL Sodium Level 141 136-145 mmol/L Potassium Level 3.3 3.5-5.1 mmol/L Chloride Level 105 98-107 mmol/L Carbon Dioxide Level 27 21-32 mmol/L Anion Gap 9.0 3-11 mmol/L Blood Urea Nitrogen 17 7-18 mg/dl Creatinine 0.86 0.60-1.20 mg/dl Est Creatinine Clear Calc Drug Dose 63.0 ml/min Estimated GFR () 79.9 Estimated GFR (Non- 68.9 BUN/Creatinine Ratio 19.7 10-20 Random Glucose 111 70-99 mg/dl Calcium Level 8.8 8.5-10.1 mg/dl Diagnostic Radiology CHEST ONE VIEW PORTABLE HISTORY: 71 years-old Female productive cough SOB hx asthma acute cough with asthma COMPARISON: Chest radiograph 06/17/2017 TECHNIQUE: Portable AP view of the chest FINDINGS: Cardiomediastinal and hilar silhouettes are within normal limits. No pneumothorax or pleural effusion. Subsegmental left basilar opacities. Bones of the chest appear grossly intact. Degenerative changes of the shoulders and spine. IMPRESSION: Subsegmental left basilar opacities favor atelectasis. Impression Assessment and Plan Ms. Hoskins is a 71 y/o female with PMHx of Severe Persistent Asthma - Eosinophilic, Chronic Allergic Rhinitis, Ulcerative Colitis, T2DM, HTN, GERD, and HLD who presents to the ED c/o SOB x Wed/Wednesday Acute Hypoxic Respiratory Failure 2/2 Influenza B and Acute Asthma Exacerbation ; Possible PNA? - CXR with L basilar opacity and patient states she had a LLL pneumonia in the past and reports having CXR changes on that side; Given Zithromax and Rocephin in ED - Continue Zithromax 500 mg IV x 2 more days; Could ultimately D/C Rocephin pending CXR in AM as patient is afebrile and without leukocytosis but is rhonchorous on examination - Tamiflu 75 mg BID x 5 days - is borderline in the window for effectiveness but will utilize - Methylprednisolone 60 mg Q8H; Xopenex Q6H and PRN; Mucinex 1200 mg BID - Singulair 10 mg daily and Spiriva 1 puff daily - Given recent travel could consider CTA however symptoms support above diagnosis but should be R/O if no improvement; may need to consult pulm if no improvement - she has had bronchs in the past for suspected mucous plugging. Never required intubation for asthma exacerbations Chronic Allergic Rhinitis: - Zyrtec 10 mg daily; Flonase daily T2DM: A1c 7.3 - Hold Metformin and Gliperide; Cover with SSI Ulcerative Colitis: STABLE - Mesalamine 800 mg QID GERD: - Zantac 150 mg BID and Protonix as Prilosec interchange HLD: - Simvastatin 20 mg daily Code Status: FULL RESUSCITATION DVT Prophylaxis: Heparin Disposition: From home Resident Physician Supervision Note: I was present with Neli CASTILLO during the history and exam. I discussed the case with the PA and agree with the findings and plan as documented in the note. Any exceptions or clarifications are listed here: 71 y/o F severe persistent eosinophilic asthma, chronic allergic rhinitis, UC, DM II, HTN, GERD, HLD presenting with progressive SOB x 2 days. Initial labs are notable for an unseasonable (+) rapid influ B. OE AAO x 3 S1,2 R Poor air movement and wheezing in all lung pina NT, ND No CCE P: Pt started on Tamiflu and will be treated for asthma exacerbation There is no definitive evidence of a superimposed PNM - she is maintained on Zithromax regardless at present and repeat imaging is scheduled for AM SS for DM Cont Statin Cont Mesalamine Documented By: Shravan Olivera Resuscitation Status VTE Prophylaxis Will order VTE Prophylaxis: Yes
[2017-07-20] MEDS: LEVALBUTEROL 1.25MG/3ML NEB INH SCH (20:02)
[2017-07-20] MEDS ORDERED: LEVALBUTEROL 1.25MG/3ML NEB INH PRN (20:30)
[2017-07-20] MEDS: NYSTATIN POWDER 15GM BTL EXT SCH (22:02)
[2017-07-20] MEDS: OSELTAMIVIR PHOSPHATE 75 MG CAP PO SCH (22:03)
[2017-07-20] MEDS: GUAIFENESIN 600 MG TABCR PO SCH (22:04)
[2017-07-20] MEDS: MESALAMINE 400 MG CAPDR PO SCH (22:04)
[2017-07-20] MEDS: SIMVASTATIN 20 MG TAB PO SCH (22:04)
[2017-07-20] MEDS: RANITIDINE HCL 150 MG TAB PO SCH (22:04)
[2017-07-20] MEDS: INSULIN ASPART 100 UNITS/ML 3 ML PEN SC SCH (22:08)
[2017-07-20 22:33] VITALS: BP 155/75; TEMP 37.1; O2SAT 92; Ht 157.5 cm; Wt 85.5 kg
[2017-07-20 23:42] VITALS: BP 153/81; PULSE 102; TEMP 36.6; O2SAT 92
[2017-07-20] MEDS: METHYLPREDNISOLONE IV 60 MG in SYRINGE 0 ML IV SCH (23:58)
[2017-07-21 05:50] LABS: HEMOGLOBIN 13.3 g/dL (12.0-16.0); MEAN CELL VOLUME 92.3 fL (80-100); MEAN CORPUSCULAR HGB CONC 32.4 g/dl (32-36); MEAN PLATELET VOLUME 9.9 fL (7.4-10.4); PLATELET COUNT 230 K/uL (130-400); RED CELL DISTRIBUTION WIDTH CV 14.1 % (11.5-14.5); RED CELL DISTRIBUTION WIDTH SD 47.8 fL (36.4-46.3); WHITE BLOOD COUNT 12.14 K/uL (4.8-10.8)
[2017-07-21 06:17] LABS: BASO % 0.1 %; BASO ABS # 0.01 K/uL (0-0.2); IG# 0.05 K/uL (0.00-0.02); LYMPH % 3.5 %; LYMPH ABS # 0.43 K/uL (1.2-3.4); MONO ABS # 0.73 K/uL (0.11-0.59); NEUT ABS # 10.92 K/uL (1.4-6.5)
[2017-07-21 06:23] LABS: CALCIUM 8.4 mg/dl (8.5-10.1); CREATININE 0.8 mg/dl (0.60-1.20); POTASSIUM 4.3 mmol/L (3.5-5.1)
[2017-07-21 07:05] VITALS: PULSE 97; O2SAT 96
[2017-07-21] MEDS: METHYLPREDNISOLONE IV 60 MG in SYRINGE 0 ML IV SCH ×2 (07:52→15:56)
[2017-07-21] MEDS: FLUTICASONE PROPIONATE NA SPR 16 GM BTL NAE SCH (07:53)
[2017-07-21] MEDS: OSELTAMIVIR PHOSPHATE 75 MG CAP PO SCH ×2 (07:54→20:59)
[2017-07-21] MEDS: MESALAMINE 400 MG CAPDR PO SCH ×4 (07:54→21:00)
[2017-07-21] MEDS: RANITIDINE HCL 150 MG TAB PO SCH ×2 (07:55→21:01)
[2017-07-21] MEDS: CETIRIZINE HCL 10 MG TAB PO SCH (07:56)
[2017-07-21] MEDS: GUAIFENESIN 600 MG TABCR PO SCH ×2 (07:56→21:00)
[2017-07-21] MEDS: PANTOprazole SOD 40 MG TAB PO SCH (07:56)
[2017-07-21 07:59] VITALS: BP 141/81; PULSE 94; TEMP 36.5; O2SAT 91
[2017-07-21] MEDS: NYSTATIN POWDER 15GM BTL EXT SCH ×2 (08:03→21:00)
[2017-07-21] MEDS: INSULIN ASPART 100 UNITS/ML 3 ML PEN SC SCH ×4 (08:07→21:37)
[2017-07-21] MEDS ORDERED: MONTELUKAST SOD 10 MG TAB PO SCH (09:00)
[2017-07-21] MEDS ORDERED: TIOTROPIUM BROMIDE 5 PUFF/90 MCG INH INH SCH ×2 (09:00)
[2017-07-21] MEDS ORDERED: NURSING DECISION MEDICATION ORDER SCH (09:00)
[2017-07-21] MEDS ORDERED: NURSING VERBAL MED ORDER ONE (10:00)
--- NOTE | 2017-07-21 11:33 | DIAGNOSTIC IMAGING REPORT ---
CHEST 2 VIEWS ROUTINE CLINICAL HISTORY: Influenza/Pneumonia? Dyspnea COMPARISON STUDY: 07/20/2017 FINDINGS: Developing a small bibasilar parenchymal infiltrates. Incomplete visibility medial left hemidiaphragm. The upper lungs are considered clear. No significant cardiac enlargement. IMPRESSION: Slightly progressive left and to a lesser extent right basilar parenchymal infiltrative change. The above report was generated using voice recognition software. It may contain grammatical, syntax or spelling errors. Electronically signed by: Eduard Guzman M.D. 07/21/2017 11:31 AM Dictated Date/Time: 07/21/2017 11:30 AM
[2017-07-21 13:30] VITALS: PULSE 86; O2SAT 97
[2017-07-21] MEDS: LEVALBUTEROL 1.25MG/3ML NEB INH SCH ×2 (13:30→19:27)
[2017-07-21 15:48] VITALS: BP 132/68; PULSE 81; TEMP 36.7; O2SAT 95
[2017-07-21] MEDS ORDERED: CEFTRIAXONE SOD INJ 1 GM in DEXTROSE 5% ADD-VANTAGE 50ML 50 ML IV SCH (16:00)
[2017-07-21] MEDS ORDERED: AZITHROMYCIN IV 500 MG in DEXTROSE 5% 250ML 250 ML IV SCH (17:00)
--- NOTE | 2017-07-21 18:30 | Family Medicine Progress Note ---
Progress Note Date of Service July 21, 2017. Subjective Pt is resting comfortably in bed during interview. Is very knowledgeable about her asthma disease, and states she is following with Dr. Cedeno in [place] and apparently he started her on a new medication in the last few weeks called Nucala (Mepolizumab). States that after starting the levaquin for her pneumonia last week that her symptoms did not improve which is why she decided to cut her vacation in [place] short and return to [facility]. She is not normally on oxygen although is tolerating well here, sats are responsive. Ate breakfast, is voiding well. Denies nausea, chest pain or head ache or fevers or chills. ROS See HPI for pertinent positives and negatives. Objective Physical Exam Notes: GENERAL: Awake, alert, well-appearing, in no distress. Obese. HENT: Normocephalic, atraumatic. EYES: Normal conjunctiva. Sclera non-icteric. NECK: Supple. FROM. RESPIRATORY: + rhonchi bilaterally with mild inspiratory wheeze. CARDIAC: Regular rate, normal rhythm. Extremities warm and well perfused. Pulses equal. ABDOMEN: Soft, non-distended. No tenderness to palpation. No rebound or guarding. No masses. LOWER EXTREMITIES: Calves are equal size bilaterally and non-tender. No edema. No discoloration. NEURO: No motor deficits noted. SKIN: No rash or jaundice noted. Assessment and Plan 71F here for asthma exacerbation. PMH includes Severe Persistent Asthma - Eosinophilic, Chronic Allergic Rhinitis, Ulcerative Colitis, T2DM, HTN, GERD, and HLD. Acute Hypoxic Respiratory Failure 2/2 Influenza B and Acute Asthma Exacerbation ; Possible PNA? - CXR with L basilar opacity and patient states she had a LLL pneumonia in the past and reports having CXR changes on that side; Given Zithromax and Rocephin in ED - sputum cx growing staph aureus, normal rosa elena. Sensitivity pending. - Continue Zithromax 500 mg IV x 1 more day; Continue Rocephin - Tamiflu 75 mg BID 1/5 days total - Methylprednisolone 60 mg Q8H; Xopenex Q6H and PRN; Mucinex 1200 mg BID - Singulair 10 mg daily and Spiriva 1 puff daily - repeat CXR shows slight progression of bibasilar infiltrates - May need to consult pulm if no improvement - she has had bronchs in the past for suspected mucous plugging. Never required intubation for asthma exacerbations Chronic Allergic Rhinitis: - Zyrtec 10 mg daily; Flonase daily T2DM: A1c 7.3 - Hold Metformin and Gliperide; Cover with SSI Ulcerative Colitis: STABLE - Mesalamine 800 mg QID GERD: - Zantac 150 mg BID and Protonix as Prilosec interchange HLD: - Simvastatin 20 mg daily Code Status: FULL DVT Prophylaxis: Heparin Disposition: med/surg. To home on discharge, independent. Current Inpatient Medications Medications (Trade) Dose Ordered Sig/Julee Route Start Time Stop Time Status Last Admin Dose Admin Acetaminophen (Tylenol Tab) 650 mg Q4H PRN PO 07/20/17 18:45 08/19/17 18:44 Al Hydrox/Mg Hydrox/Simethicone (Maalox Max Susp) 15 ml Q4H PRN PO 07/20/17 18:45 08/19/17 18:44 Magnesium Hydroxide (Milk Of Magnesia Susp) 30 ml Q6H PRN PO 07/20/17 18:45 08/19/17 18:44 Polyethylene (Miralax Powder Packet) 17 gm DAILY PRN PO 07/20/17 18:45 08/19/17 18:44 Ondansetron HCl (Zofran Inj) 4 mg Q6H PRN IV 07/20/17 18:45 08/19/17 18:44 Oseltamivir Phosphate (Tamiflu Cap) 75 mg BID PO 07/20/17 21:00 07/25/17 20:59 07/21/17 07:54 75 MG Levalbuterol (Xopenex 1.25MG/ 3ML Neb) 1.25 mg Q6R INH 07/20/17 21:00 08/19/17 20:59 07/21/17 13:30 1.25 MG Cetirizine HCl (zyrTEC TAB) 10 mg QAM PO 07/21/17 09:00 08/20/17 08:59 07/21/17 07:56 10 MG Fluticasone Propionate (Flonase Nasal Golden) 2 sprays DAILY ESTEFANÍA 07/21/17 09:00 08/20/17 08:59 07/21/17 07:53 2 SPRAYS Miscellaneous Information (Order Awaiting Action) 1 ea QS N/A 07/21/17 00:00 08/20/17 00:00 Mesalamine (Delzicol Delayed Rel Cap) 800 mg QID PO 07/20/17 21:00 08/19/17 20:59 07/21/17 16:41 800 MG Nystatin (Mycostatin Powder) 1 appln BID EXT 07/20/17 21:00 08/19/17 20:59 Ranitidine HCl (zANTac TAB) 150 mg BID PO 07/20/17 21:00 08/19/17 20:59 07/21/17 07:55 150 MG Simvastatin (Zocor Tab) 20 mg HS PO 07/20/17 21:00 08/19/17 20:59 07/20/17 22:04 20 MG Pantoprazole Sodium (Protonix Tab) 40 mg QAM PO 07/21/17 09:00 08/20/17 08:59 07/21/17 07:56 40 MG Insulin Aspart (novoLOG ASPART) SLIDING SCALE If C... ACHS SC 07/20/17 21:00 08/19/17 20:59 07/21/17 12:16 9 UNITS Glucose (Glucose 40% Gel) 15-30 GRAMS 15 GRAMS... UD PRN PO 07/20/17 19:30 08/19/17 19:29 Glucose (Glucose Chew Tab) 4-8 Tablets 4 Tabl... UD PRN PO 07/20/17 19:30 08/19/17 19:29 Dextrose (Dextrose 50% 50ML Syringe) 25-50ML 25ML FOR ... UD PRN IV 07/20/17 19:30 08/19/17 19:29 Glucagon (Glucagon Inj) 1 mg UD PRN SQ 07/20/17 19:30 08/19/17 19:29 Carbohydrates (Carbohydrates For Hypoglycemia) 15-30 GRAMS 15 grams if BSG 54-69... UD PRN PO 07/20/17 19:30 08/19/17 19:29 Guaifenesin (Mucinex Contr Rel Tab) 1,200 mg Q12 PO 07/20/17 21:00 08/19/17 20:59 07/21/17 07:56 1,200 MG Azithromycin 500 mg/Dextrose 255 ml @ 125 mls/hr Q24H IV 07/21/17 17:00 07/28/17 16:59 07/21/17 16:37 125 MLS/HR Ceftriaxone Sodium 1 gm/ Dextrose 50 ml @ 100 mls/hr Q24H IV 07/21/17 16:00 07/28/17 15:59 07/21/17 15:56 100 MLS/HR Methylprednisolone Sodium Succinate 60 mg/Syringe 0.96 ml @ 1.5 mls/min Q8H IV 07/21/17 00:00 08/20/17 00:00 07/21/17 15:56 1.5 MLS/MIN Levalbuterol (Xopenex 1.25MG/ 3ML Neb) 1.25 mg Q2H PRN INH 07/20/17 20:30 08/19/17 20:29 Montelukast Sodium (Singulair Tab) 10 mg HS PO 07/21/17 21:00 08/20/17 20:59 Tiotropium [place] (Spiriva Handihaler Inhaler) 1 puff DAILY@1100 INH 07/22/17 11:00 08/21/17 10:59 Date Time Temp Pulse Resp B/P (MAP) Pulse Ox O2 Delivery O2 Flow Rate FiO2 07/21/17 16:00 Nasal Cannula 3.5 07/21/17 15:48 36.7 81 20 132/68 (89) 95 Nasal Cannula 3.0 07/21/17 13:30 86 20 97 Nasal Cannula 4.0 07/21/17 08:00 Nasal Cannula 3.0 07/21/17 07:59 36.5 94 18 141/81 (101) 91 Nasal Cannula 3.5 07/21/17 07:05 97 20 96 Nasal Cannula 4.0 07/21/17 00:10 Nasal Cannula 3.0 07/20/17 23:42 36.6 102 20 153/81 (105) 92 Nasal Cannula 3.0 07/20/17 22:33 37.1 20 155/75 92 Nasal Cannula 3.0 07/20/17 20:30 104 23 155/75 93 07/20/17 20:22 104 07/20/17 20:01 108 23 155/75 93 Nasal Cannula 3.0 07/20/17 19:31 110 21 135/94 93 Nasal Cannula 3.0 07/20/17 18:30 111 19 160/90 94 Nasal Cannula 3.0 07/21/17 05:15 Red Blood Count 4.44, Mean Corpuscular Volume 92.3, Mean Corpuscular Hemoglobin 30.0, Mean Corpuscular Hemoglobin Concent 32.4, Mean Platelet Volume 9.9, Neutrophils (%) (Auto) 90.0, Lymphocytes (%) (Auto) 3.5, Monocytes (%) (Auto) 6.0, Eosinophils (%) (Auto) 0.0, Basophils (%) (Auto) 0.1, Neutrophils # (Auto) 10.92, Lymphocytes # (Auto) 0.43, Monocytes # (Auto) 0.73, Eosinophils # (Auto) 0.00, Basophils # (Auto) 0.01 07/21/17 05:15 Test 07/21/17 05:15 07/21/17 16:49 White Blood Count 12.14 K/uL (4.8-10.8) Red Blood Count 4.44 M/uL (4.2-5.4) Hemoglobin 13.3 g/dL (12.0-16.0) Hematocrit 41.0 % (37-47) Mean Corpuscular Volume 92.3 fL (80-100) Mean Corpuscular Hemoglobin 30.0 pg (25-34) Mean Corpuscular Hemoglobin Concent 32.4 g/dl (32-36) Platelet Count 230 K/uL (130-400) Mean Platelet Volume 9.9 fL (7.4-10.4) Neutrophils (%) (Auto) 90.0 % Lymphocytes (%) (Auto) 3.5 % Monocytes (%) (Auto) 6.0 % Eosinophils (%) (Auto) 0.0 % Basophils (%) (Auto) 0.1 % Neutrophils # (Auto) 10.92 K/uL (1.4-6.5) Lymphocytes # (Auto) 0.43 K/uL (1.2-3.4) Monocytes # (Auto) 0.73 K/uL (0.11-0.59) Eosinophils # (Auto) 0.00 K/uL (0-0.5) Basophils # (Auto) 0.01 K/uL (0-0.2) RDW Standard Deviation 47.8 fL (36.4-46.3) RDW Coefficient of Variation 14.1 % (11.5-14.5) Immature Granulocyte % (Auto) 0.4 % Immature Granulocyte # (Auto) 0.05 K/uL (0.00-0.02) Red Blood Cell Morphology Unremarkable Anion Gap 7.0 mmol/L (3-11) Est Creatinine Clear Calc Drug Dose 67.3 ml/min Estimated GFR () 87.2 Estimated GFR (Non- 75.2 BUN/Creatinine Ratio 23.5 (10-20) Calcium Level 8.4 mg/dl (8.5-10.1) Bedside Glucose 273 mg/dl (70-90) Continued [facility] stay due to: multiple IV medications needed Discharge planning: home Resident Tracking Resident Involvement: Resident Care Provided Care Provided: Adult Hospital Medicine Reviewed: Pt Seen/Exam by Me History breathing slightly better Constitutional: denies: fever Respiratory: positive: cough Cardiovascular: denies chest pain General Appearance: no apparent distress Respiratory: no respiratory distress, rhonchi (occasional) Cardiovascular: regular rate, rhythm Neurologic/Psychiatric: alert, oriented x 3 Assessment/Plan Resident Physician Supervision Note: I independently interviewed and examined the patient and verified the king history and physical, reviewed labs and image studies, discussed the case with the resident Dr. Wilburn and agree with the findings and care plan.
[2017-07-21 19:28] VITALS: PULSE 79; O2SAT 96
[2017-07-21] MEDS: MONTELUKAST SOD 10 MG TAB PO SCH (20:59)
[2017-07-21] MEDS: SIMVASTATIN 20 MG TAB PO SCH (21:00)
[2017-07-21 23:39] VITALS: BP 129/80; PULSE 69; TEMP 36.6; O2SAT 96
[2017-07-22] MEDS: METHYLPREDNISOLONE IV 60 MG in SYRINGE 0 ML IV SCH ×3 (00:28→16:05)
[2017-07-22] MEDS: LEVALBUTEROL 1.25MG/3ML NEB INH SCH ×4 (01:41→18:58)
[2017-07-22 01:42] VITALS: PULSE 69; O2SAT 96
[2017-07-22 06:11] LABS: BASO % 0.1 %; BASO ABS # 0.01 K/uL (0-0.2); HEMATOCRIT 39.6 % (37-47); IG# 0.04 K/uL (0.00-0.02); LYMPH % 4.1 %; LYMPH ABS # 0.51 K/uL (1.2-3.4); MEAN CELL VOLUME 91.9 fL (80-100); MEAN CORPUSCULAR HEMOGLOBIN 30.2 pg (25-34); MEAN CORPUSCULAR HGB CONC 32.8 g/dl (32-36); MEAN PLATELET VOLUME 9.9 fL (7.4-10.4); MONO % 4.2 %; MONO ABS # 0.52 K/uL (0.11-0.59); NEUT % 91.3 %; NEUT ABS # 11.32 K/uL (1.4-6.5); PLATELET COUNT 231 K/uL (130-400); RED CELL DISTRIBUTION WIDTH CV 13.7 % (11.5-14.5); RED CELL DISTRIBUTION WIDTH SD 46.4 fL (36.4-46.3)
[2017-07-22 06:43] LABS: CREATININE 0.79 mg/dl (0.60-1.20)
[2017-07-22 06:44] LABS: CALCIUM 8.3 mg/dl (8.5-10.1); POTASSIUM 4.1 mmol/L (3.5-5.1)
[2017-07-22 07:11] VITALS: PULSE 81; O2SAT 97
[2017-07-22] MEDS ORDERED: VANCOMYCIN CONSULT ACTIVE PRN (08:00)
[2017-07-22 08:04] VITALS: BP 137/84; PULSE 76; TEMP 36.7; O2SAT 94
[2017-07-22] MEDS: INSULIN ASPART 100 UNITS/ML 3 ML PEN SC SCH ×4 (08:52→21:30)
[2017-07-22 08:58] LABS: HEMOGLOBIN A1C 7.4 % (4.5-5.6)
[2017-07-22] MEDS: NYSTATIN POWDER 15GM BTL EXT SCH ×2 (09:00→20:00)
[2017-07-22] MEDS ORDERED: VANCOMYCIN IV 1,000 MG in SODIUM CHLORIDE 0.9% 250ML 250 ML IV SCH (09:00)
[2017-07-22] MEDS: PANTOprazole SOD 40 MG TAB PO SCH (09:36)
[2017-07-22] MEDS: RANITIDINE HCL 150 MG TAB PO SCH ×2 (09:36→20:49)
[2017-07-22] MEDS: FLUTICASONE PROPIONATE NA SPR 16 GM BTL NAE SCH (09:36)
[2017-07-22] MEDS: GUAIFENESIN 600 MG TABCR PO SCH ×2 (09:36→20:50)
[2017-07-22] MEDS: CETIRIZINE HCL 10 MG TAB PO SCH (09:37)
[2017-07-22] MEDS: MESALAMINE 400 MG CAPDR PO SCH ×4 (09:37→20:46)
[2017-07-22] MEDS: OSELTAMIVIR PHOSPHATE 75 MG CAP PO SCH ×2 (09:37→20:49)
[2017-07-22] MEDS: INSULIN GLARGINE SOLOSTAR 100 UNITS/ML 3 ML PEN SC SCH (09:48)
[2017-07-22] MEDS ORDERED: VANCOMYCIN IV 2,000 MG in SODIUM CHLORIDE 0.9% 500ML 500 ML IV ONE (10:00)
--- NOTE | 2017-07-22 10:38 | Pharmacy Progress Note ---
Pharmacy Abx Initial Consult Date of Service July 22, 2017. Pharmacy Dosing Scope Date of Consult: 07/22/17 Consultation requested by: Dr. Faria Pharmacy is consulted to initiate Vancomycin IV dosing therapy, order appropriate labs and adjust drug dose/frequency. Subjective The patient is a 71 year old female admitted on July 20, 2017 at 19:23. Objective Height (Feet): 5 Height (Inches): 2.00 Weight (Kilograms): 85.500 (BMI 34.5) Vital Signs (Past 12Hrs) Vital Signs Past 12 Hours Date Time Temp Pulse Resp B/P (MAP) Pulse Ox O2 Delivery O2 Flow Rate FiO2 07/22/17 08:04 36.7 76 20 137/84 (101) 94 Nasal Cannula 3.0 07/22/17 07:11 81 16 97 Nasal Cannula 3.0 07/22/17 01:42 69 16 96 Nasal Cannula 3.0 07/22/17 00:30 Nasal Cannula 3.0 07/21/17 23:39 36.6 69 20 129/80 (96) 96 Nasal Cannula 3.0 Lab Results (24Hrs) Laboratory Tests (24 Hours) Test 07/22/17 05:49 White Blood Count 12.40 K/uL (4.8-10.8) H Red Blood Count 4.31 M/uL (4.2-5.4) Hemoglobin 13.0 g/dL (12.0-16.0) Hematocrit 39.6 % (37-47) Mean Corpuscular Volume 91.9 fL (80-100) Mean Corpuscular Hemoglobin 30.2 pg (25-34) Mean Corpuscular Hemoglobin Concent 32.8 g/dl (32-36) Platelet Count 231 K/uL (130-400) Mean Platelet Volume 9.9 fL (7.4-10.4) Neutrophils (%) (Auto) 91.3 % Lymphocytes (%) (Auto) 4.1 % Monocytes (%) (Auto) 4.2 % Eosinophils (%) (Auto) 0.0 % Basophils (%) (Auto) 0.1 % Neutrophils # (Auto) 11.32 K/uL (1.4-6.5) H Lymphocytes # (Auto) 0.51 K/uL (1.2-3.4) L Monocytes # (Auto) 0.52 K/uL (0.11-0.59) Eosinophils # (Auto) 0.00 K/uL (0-0.5) Basophils # (Auto) 0.01 K/uL (0-0.2) Micro Results Item Value Date Time Influenza Type B Antigen POS for Influ B *A 07/20/17 1612 Date/Time Source Procedure Growth Status 07/20/17 20:45 Sputum Expectorated Sputum Gram Stain - Final Resulted 07/20/17 20:45 Sputum Culture - Preliminary Staph. Aureus Mrsa Resulted Risk Factors for Resistance * Antimicrobial use within the last 90 days Levaquin Assessment & Plan Assessment 71 year old female admitted with productive cough/SOB (rhochi and wheezing present) x 3 days. Patient has history of asthma. CXR shows bibasilar inflitrates. + Influenza B and Gram stain positive for MRSA (07/22/17) Plan Vancomycin IV * Loading dose: 2000 mg (~23.4 mg/kg) * Maintenance dose: 1250 mg IV (~14.6 mg/kg) every 14 hours * Goal trough level for pulmonary indication : 15 to 20 mcg/mL * Trough level ordered for 07/24/17 @1730 Pharmacy will continue to follow and will adjust dose/frequency as necessary. Thank you.
[2017-07-22] MEDS: TIOTROPIUM BROMIDE 5 PUFF/90 MCG INH INH SCH (11:11)
--- NOTE | 2017-07-22 12:53 | Clinical Documentation Query ---
CLINICAL DOCUMENTATION QUERY Dr. VITAL, In your clinical opinion is this patient being managed for: ( x ) MRSA Pneumonia ( ) Not Agree ( ) Other explanation of clinical findings (Please Explain; If no explanation given, this is considered a no response.) ( ) Unable to determine ( ) Need to Discuss (Please call CDS via extension or [employer]. If no interaction occurs, this is considered a no response.) The medical record reflects the following clinical findings, treatment, and risk factors. Clinical Indicators: 71 yo female presenting with cough and dyspnea. Sputum cx revealed MRSA Treatment: IV vancomycin Risk Factors: severe persistent asthma, prn prednisone use Please clarify and document your clinical opinion in the progress notes and discharge summary. Terms such as "probable", "suspected", "likely", "questionable", "possible", or "still to be ruled out" are acceptable. IF IN AGREEMENT, YOU MUST DOCUMENT ABOVE DIAGNOSTIC STATEMENT IN DAILY PROGRESS NOTES AND DISCHARGE SUMMARY. This document is not part of the patient's record. Thank You, Guerline Bolton RN [phone]
--- NOTE | 2017-07-22 12:55 | Clinical Documentation Query ---
CLINICAL DOCUMENTATION QUERY Dr. RODRIGUEZ, In your clinical opinion is this patient being managed for: ( x ) MRSA Pneumonia ( ) Not Agree ( ) Other explanation of clinical findings (Please Explain; If no explanation given, this is considered a no response.) ( ) Unable to determine ( ) Need to Discuss (Please call CDS via extension or [employer]. If no interaction occurs, this is considered a no response.) The medical record reflects the following clinical findings, treatment, and risk factors. Clinical Indicators: 71 yo female presenting with cough and dyspnea. Sputum cx revealed MRSA Treatment: IV vancomycin Risk Factors: severe persistent asthma, prn prednisone use Please clarify and document your clinical opinion in the progress notes and discharge summary. Terms such as "probable", "suspected", "likely", "questionable", "possible", or "still to be ruled out" are acceptable. IF IN AGREEMENT, YOU MUST DOCUMENT ABOVE DIAGNOSTIC STATEMENT IN DAILY PROGRESS NOTES AND DISCHARGE SUMMARY. This document is not part of the patient's record. Thank You, Guerline Bolton RN [phone]
[2017-07-22 14:21] VITALS: PULSE 88; O2SAT 97
[2017-07-22 15:36] VITALS: BP 137/75; PULSE 76; TEMP 36.6; O2SAT 93
--- NOTE | 2017-07-22 15:57 | Family Medicine Progress Note ---
Progress Note Date of Service July 22, 2017. Subjective Pt is sitting up in her chair when I enter the room, nasal cannula in place. Says that her breathing is getting better, she feels her mucous she is coughing up is getting more clear and easier to expectorate. She feels she is improving but wants to be truly on the mend before leaving. Discussed preliminary results of sputum culture with her and how that may change our therapy. She is eating and voiding well, does not report chest pain or abdominal pain at this time. ROS See HPI for pertinent positives and negatives. Objective Physical Exam Notes: GENERAL: Awake, alert, well-appearing, in no distress. Obese. HENT: Normocephalic, atraumatic. EYES: Normal conjunctiva. Sclera non-icteric. NECK: Supple. FROM. RESPIRATORY: Mild inspiratory wheeze bilaterally. No longer rhonchorous. CARDIAC: Regular rate, normal rhythm. Extremities warm and well perfused. Pulses equal. ABDOMEN: Soft, non-distended. No tenderness to palpation. No rebound or guarding. No masses. LOWER EXTREMITIES: Calves are equal size bilaterally and non-tender. No edema. No discoloration. NEURO: No motor deficits noted. SKIN: No rash or jaundice noted. Assessment and Plan 71F here for asthma exacerbation. PMH includes Severe Persistent Asthma - Eosinophilic, Chronic Allergic Rhinitis, Ulcerative Colitis, T2DM, HTN, GERD, and HLD. Acute Hypoxic Respiratory Failure 2/2 Influenza B and Acute Asthma Exacerbation ; MRSA+ Pneumonia - CXR with L basilar opacity and patient states she had a LLL pneumonia in the past and reports having CXR changes on that side; Given Zithromax and Rocephin in ED - repeat CXR shows slight progression of bibasilar infiltrates - Sputum cx +MRSA - change abx to Vancomycin IV with possibility of linezolid PO on discharge. - Tamiflu 75 mg BID 1/5 days total - Methylprednisolone 60 mg Q8H; Xopenex Q6H and PRN; Mucinex 1200 mg BID - Singulair 10 mg daily and Spiriva 1 puff daily - On Nucala Chronic Allergic Rhinitis: - Zyrtec 10 mg daily; Flonase daily T2DM: A1c 7.3 - Hold Metformin and Gliperide; Cover with SSI - BSG remain in high 200s with steroids ongoing -- Adding 15units of Lantus qam Ulcerative Colitis: STABLE - Mesalamine 800 mg QID GERD: - Zantac 150 mg BID and Protonix as Prilosec interchange HLD: - Simvastatin 20 mg daily Code Status: FULL DVT Prophylaxis: Heparin Disposition: med/surg. To home on discharge, independent. Current Inpatient Medications Medications (Trade) Dose Ordered Sig/Julee Route Start Time Stop Time Status Last Admin Dose Admin Acetaminophen (Tylenol Tab) 650 mg Q4H PRN PO 07/20/17 18:45 08/19/17 18:44 Al Hydrox/Mg Hydrox/Simethicone (Maalox Max Susp) 15 ml Q4H PRN PO 07/20/17 18:45 08/19/17 18:44 Magnesium Hydroxide (Milk Of Magnesia Susp) 30 ml Q6H PRN PO 07/20/17 18:45 08/19/17 18:44 Polyethylene (Miralax Powder Packet) 17 gm DAILY PRN PO 07/20/17 18:45 08/19/17 18:44 Ondansetron HCl (Zofran Inj) 4 mg Q6H PRN IV 07/20/17 18:45 08/19/17 18:44 Oseltamivir Phosphate (Tamiflu Cap) 75 mg BID PO 07/20/17 21:00 07/25/17 20:59 07/22/17 09:37 75 MG Levalbuterol (Xopenex 1.25MG/ 3ML Neb) 1.25 mg Q6R INH 07/20/17 21:00 08/19/17 20:59 07/22/17 14:21 1.25 MG Cetirizine HCl (zyrTEC TAB) 10 mg QAM PO 07/21/17 09:00 08/20/17 08:59 07/22/17 09:37 10 MG Fluticasone Propionate (Flonase Nasal [place]) 2 sprays DAILY ESTEFANÍA 07/21/17 09:00 08/20/17 08:59 07/22/17 09:36 2 SPRAYS Miscellaneous Information (Order Awaiting Action) 1 ea QS N/A 07/21/17 00:00 08/20/17 00:00 Mesalamine (Delzicol Delayed Rel Cap) 800 mg QID PO 07/20/17 21:00 08/19/17 20:59 07/22/17 12:48 800 MG Nystatin (Mycostatin Powder) 1 appln BID EXT 07/20/17 21:00 08/19/17 20:59 Ranitidine HCl (zANTac TAB) 150 mg BID PO 07/20/17 21:00 08/19/17 20:59 07/22/17 09:36 150 MG Simvastatin (Zocor Tab) 20 mg HS PO 07/20/17 21:00 08/19/17 20:59 07/21/17 21:00 20 MG Pantoprazole Sodium (Protonix Tab) 40 mg QAM PO 07/21/17 09:00 08/20/17 08:59 07/22/17 09:36 40 MG Insulin Aspart (novoLOG ASPART) SLIDING SCALE If C... ACHS SC 07/20/17 21:00 08/19/17 20:59 07/22/17 12:47 10 UNITS Glucose (Glucose 40% Gel) 15-30 GRAMS 15 GRAMS... UD PRN PO 07/20/17 19:30 08/19/17 19:29 Glucose (Glucose Chew Tab) 4-8 Tablets 4 Tabl... UD PRN PO 07/20/17 19:30 08/19/17 19:29 Dextrose (Dextrose 50% 50ML Syringe) 25-50ML 25ML FOR ... UD PRN IV 07/20/17 19:30 08/19/17 19:29 Glucagon (Glucagon Inj) 1 mg UD PRN SQ 07/20/17 19:30 08/19/17 19:29 Carbohydrates (Carbohydrates For Hypoglycemia) 15-30 GRAMS 15 grams if BSG 54-69... UD PRN PO 07/20/17 19:30 08/19/17 19:29 Guaifenesin (Mucinex Contr Rel Tab) 1,200 mg Q12 PO 07/20/17 21:00 08/19/17 20:59 07/22/17 09:36 1,200 MG Methylprednisolone Sodium Succinate 60 mg/Syringe 0.96 ml @ 1.5 mls/min Q8H IV 07/21/17 00:00 08/20/17 00:00 07/22/17 09:49 1.5 MLS/MIN Levalbuterol (Xopenex 1.25MG/ 3ML Neb) 1.25 mg Q2H PRN INH 07/20/17 20:30 08/19/17 20:29 Montelukast Sodium (Singulair Tab) 10 mg HS PO 07/21/17 21:00 08/20/17 20:59 07/21/17 20:59 10 MG Tiotropium [place] (Spiriva Handihaler Inhaler) 1 puff DAILY@1100 INH 07/22/17 11:00 08/21/17 10:59 07/22/17 11:11 1 PUFF Insulin Glargine (Lantus Solostar Pen) 15 units QAM SC 07/22/17 09:00 08/21/17 08:59 07/22/17 09:48 15 UNITS Miscellaneous Information (Consult) 1 ea UD PRN N/A 07/22/17 08:00 08/21/17 07:59 Vancomycin HCl 1250 mg/Sodium Chloride 275 ml @ 125 mls/hr Q14H IV 07/23/17 00:00 07/30/17 00:00 Date Time Temp Pulse Resp B/P (MAP) Pulse Ox O2 Delivery O2 Flow Rate FiO2 07/22/17 15:36 36.6 76 18 137/75 (95) 93 2.0 07/22/17 14:21 88 16 97 Nasal Cannula 3.0 07/22/17 11:22 Nasal Cannula 3.0 07/22/17 08:04 36.7 76 20 137/84 (101) 94 Nasal Cannula 3.0 07/22/17 07:11 81 16 97 Nasal Cannula 3.0 07/22/17 01:42 69 16 96 Nasal Cannula 3.0 07/22/17 00:30 Nasal Cannula 3.0 07/21/17 23:39 36.6 69 20 129/80 (96) 96 Nasal Cannula 3.0 07/21/17 19:28 79 16 96 Nasal Cannula 3.5 07/21/17 16:00 Nasal Cannula 3.5 07/22/17 05:49 Red Blood Count 4.31, Mean Corpuscular Volume 91.9, Mean Corpuscular Hemoglobin 30.2, Mean Corpuscular Hemoglobin Concent 32.8, Mean Platelet Volume 9.9, Neutrophils (%) (Auto) 91.3, Lymphocytes (%) (Auto) 4.1, Monocytes (%) (Auto) 4.2, Eosinophils (%) (Auto) 0.0, Basophils (%) (Auto) 0.1, Neutrophils # (Auto) 11.32, Lymphocytes # (Auto) 0.51, Monocytes # (Auto) 0.52, Eosinophils # (Auto) 0.00, Basophils # (Auto) 0.01 07/22/17 05:49 Test 07/22/17 05:49 07/22/17 11:38 White Blood Count 12.40 K/uL (4.8-10.8) Red Blood Count 4.31 M/uL (4.2-5.4) Hemoglobin 13.0 g/dL (12.0-16.0) Hematocrit 39.6 % (37-47) Mean Corpuscular Volume 91.9 fL (80-100) Mean Corpuscular Hemoglobin 30.2 pg (25-34) Mean Corpuscular Hemoglobin Concent 32.8 g/dl (32-36) Platelet Count 231 K/uL (130-400) Mean Platelet Volume 9.9 fL (7.4-10.4) Neutrophils (%) (Auto) 91.3 % Lymphocytes (%) (Auto) 4.1 % Monocytes (%) (Auto) 4.2 % Eosinophils (%) (Auto) 0.0 % Basophils (%) (Auto) 0.1 % Neutrophils # (Auto) 11.32 K/uL (1.4-6.5) Lymphocytes # (Auto) 0.51 K/uL (1.2-3.4) Monocytes # (Auto) 0.52 K/uL (0.11-0.59) Eosinophils # (Auto) 0.00 K/uL (0-0.5) Basophils # (Auto) 0.01 K/uL (0-0.2) RDW Standard Deviation 46.4 fL (36.4-46.3) RDW Coefficient of Variation 13.7 % (11.5-14.5) Immature Granulocyte % (Auto) 0.3 % Immature Granulocyte # (Auto) 0.04 K/uL (0.00-0.02) Anion Gap 8.0 mmol/L (3-11) Est Creatinine Clear Calc Drug Dose 68.2 ml/min Estimated GFR () 88.5 Estimated GFR (Non- 76.4 BUN/Creatinine Ratio 25.9 (10-20) Estimated Average Glucose 166 mg/dl Hemoglobin A1c 7.4 % (4.5-5.6) Calcium Level 8.3 mg/dl (8.5-10.1) Bedside Glucose 240 mg/dl (70-90) Continued [facility] stay due to: multiple IV medications needed Discharge planning: home Resident Tracking Resident Involvement: Resident Care Provided Care Provided: Adult Hospital Medicine Reviewed: Pt Seen/Exam by Me History breathing continuing to improve. Constitutional: denies: fever Cardiovascular: denies chest pain General Appearance: no apparent distress Respiratory: lungs clear, no respiratory distress Cardiovascular: regular rate, rhythm Neurologic/Psychiatric: alert, oriented x 3 Skin Characteristics: warm/dry Assessment/Plan Resident Physician Supervision Note: I independently interviewed and examined the patient and verified the king history and physical, reviewed labs and image studies, discussed the case with the resident Dr. Wilburn and agree with the findings and care plan.
[2017-07-22 18:58] VITALS: PULSE 91; O2SAT 96
[2017-07-22] MEDS: SIMVASTATIN 20 MG TAB PO SCH (20:51)
[2017-07-22] MEDS: MONTELUKAST SOD 10 MG TAB PO SCH (20:52)
[2017-07-23] VITALS (7 sets, daily range): BP systolic 139–165; BP diastolic 81–88; PULSE 61–87; TEMP 36.4–36.6; O2SAT 92–98
[2017-07-23] MEDS: VANCOMYCIN IV 1,250 MG in SODIUM CHLORIDE 0.9% 250ML 250 ML IV SCH ×2 (00:12→14:37)
[2017-07-23] MEDS: METHYLPREDNISOLONE IV 60 MG in SYRINGE 0 ML IV SCH ×3 (00:40→16:02)
[2017-07-23] MEDS: LEVALBUTEROL 1.25MG/3ML NEB INH SCH ×3 (01:50→14:16)
[2017-07-23] MEDS: OSELTAMIVIR PHOSPHATE 75 MG CAP PO SCH (07:54)
[2017-07-23] MEDS: PANTOprazole SOD 40 MG TAB PO SCH (07:54)
[2017-07-23] MEDS: CETIRIZINE HCL 10 MG TAB PO SCH (07:54)
[2017-07-23] MEDS: FLUTICASONE PROPIONATE NA SPR 16 GM BTL NAE SCH (07:54)
[2017-07-23] MEDS: RANITIDINE HCL 150 MG TAB PO SCH (07:54)
[2017-07-23] MEDS: MESALAMINE 400 MG CAPDR PO SCH ×3 (07:55→16:03)
[2017-07-23] MEDS: GUAIFENESIN 600 MG TABCR PO SCH (07:55)
[2017-07-23] MEDS: NYSTATIN POWDER 15GM BTL EXT SCH (07:57)
[2017-07-23 08:37] LABS: BASO % 0.2 %; BASO ABS # 0.02 K/uL (0-0.2); HEMATOCRIT 40.5 % (37-47); HEMOGLOBIN 13.3 g/dL (12.0-16.0); IG# 0.04 K/uL (0.00-0.02); LYMPH ABS # 0.61 K/uL (1.2-3.4); MEAN CELL VOLUME 91.2 fL (80-100); MEAN CORPUSCULAR HGB CONC 32.8 g/dl (32-36); MEAN PLATELET VOLUME 9.9 fL (7.4-10.4); MONO % 5.9 %; MONO ABS # 0.72 K/uL (0.11-0.59); NEUT % 88.6 %; NEUT ABS # 10.72 K/uL (1.4-6.5); PLATELET COUNT 256 K/uL (130-400); RED CELL DISTRIBUTION WIDTH CV 13.6 % (11.5-14.5); RED CELL DISTRIBUTION WIDTH SD 45.8 fL (36.4-46.3); WHITE BLOOD COUNT 12.11 K/uL (4.8-10.8)
[2017-07-23] MEDS: INSULIN ASPART 100 UNITS/ML 3 ML PEN SC SCH ×3 (08:55→17:50)
[2017-07-23] MEDS: INSULIN GLARGINE SOLOSTAR 100 UNITS/ML 3 ML PEN SC SCH (08:55)
[2017-07-23 09:13] LABS: CALCIUM 8.3 mg/dl (8.5-10.1); CREATININE 0.86 mg/dl (0.60-1.20); POTASSIUM 3.8 mmol/L (3.5-5.1)
[2017-07-23] MEDS: TIOTROPIUM BROMIDE 5 PUFF/90 MCG INH INH SCH (12:51)
[2017-07-23] MEDS ORDERED: TMF75 PO (14:52)
[2017-07-23] MEDS ORDERED: LINE1TAB6 PO (14:52)
[2017-07-23] MEDS ORDERED: PRED20TA2 PO (14:52)
--- NOTE | 2017-07-23 14:59 | Discharge Instructions ---
Discharge Instructions Date of Service July 23, 2017. Admission Reason for Admission: Asthma Exacerbation,Influenza B Discharge Discharge Diagnosis / Problem: Asthma exacerbation, Influenza B, MRSA + Pneumonia Discharge Goals Goal(s): Decrease discomfort, Improve function, Increase independence, Improve disease control, Improve nutritional status, Learn about illness, Diagnostic testing, Therapeutic intervention, Prevent Disease Progression Activity Recommendations Activity Limitations: per Instructions/Follow-up section . Instructions / Follow-Up Instructions / Follow-Up You were admitted due to shortness of breath and were found to have a pneumonia and also the flu. For the flu, please complete the course of TAMIFLU as directed. For your asthma exacerbation, please continue all your chronic medications, including those for your chronic allergies. Please complete the PREDNISONE we have ordered as directed. For your pneumonia, please complete the LINEZOLID tablets as directed. Please see your primary care physician next week to follow up regarding this hospital stay. Be well A Cosmo Current Hospital Diet Patient's current hospital diet: Diabetes Type 2 Diet Discharge Diet Recommended Diet: Diabetes Type 2 Diet Pending Studies Studies pending at discharge: no Laboratory Results Hemoglobin A1c Test 07/22/17 05:49 Range/Units Estimated Average Glucose 166 mg/dl Hemoglobin A1c 7.4 H 4.5-5.6 % Lipid Panel Test 06/23/17 07:30 Range/Units Triglycerides Level 171 H 0-150 mg/dl Cholesterol Level 171 0-200 mg/dl HDL Cholesterol 64 mg/dl Cholesterol/HDL Ratio 2.7 LDL Cholesterol, Calculated 73 mg/dl Medical Emergencies . Who to Call and When: Medical Emergencies: If at any time you feel your situation is an emergency, please call 911 immediately. . Non-Emergent Contact Non-Emergency issues call your: Primary Care Provider . . "Provider Documentation" section prepared by Lillian Wilburn. .
--- NOTE | 2017-07-23 18:30 | Discharge Summary ---
Discharge Summary Date of Service July 23, 2017. Discharge Summary Admission Date: July 20, 2017 at 19:23 Discharge Date: July 23, 2017 Discharge Disposition: Home Principal Diagnosis: Asthma exacerbation, FLU +, MRSA + PNA Problems/Secondary Diagnoses: PMH includes Severe Persistent Asthma - Eosinophilic, Chronic Allergic Rhinitis , Ulcerative Colitis, T2DM, HTN, GERD, and HLD. Immunizations: Have You Had Influenza Vaccine: N/A History of Tetanus Vaccine?: Unknown History of Pneumococcal: Yes History of Hepatitis B Vaccine: Unknown Medication Reconciliation New Medications: Linezolid (Zyvox) 600 Mg Tab 600 MG PO BID for 5 Days, #10 TAB Prednisone (Prednisone Tab) 20 Mg Tab 2 TAB PO DAILY for 5 Days, #10 TAB Oseltamivir Phosphate (Tamiflu) 75 Mg Cap 75 MG PO BID for 3 Days, #6 CAP Continued Medications: Albuterol Sulf (Proventil 0.083% 2.5MG/3ML) 2.5 Mg/3 Ml Nebu 2.5 MG INH QID PRN for SOB/Wheezing, EA Cetirizine (Zyrtec) 10 Mg Tab 10 MG PO QAM, 0 Refills Cyanocobalamin (Vitamin B-12) Unknown Strength Tab 1 TAB PO DAILY, TAB Fluticasone Furoate-Vilanterol (Breo Ellipta 200-25 Mcg/INH) 1 Inh Inh 1 PUFF INH DAILY Fluticasone Propionate (Fluticasone Propionate) 120 Sprays/6000 Mcg Inha 1-2 SPRAY ESTEFANÍA DAILY Glimepiride (Glimepiride) 1 Mg Tab 1 MG PO Q12 for 90 Days, #180 TAB 3 Refills TAKES BID ON DAYS WHEN TAKING PREDNISONE. Ketoconazole (Ketoconazole) 45 Appln/15 Gm Cr 1 APPLN TOP DAILY PRN for APPLY SPARINGLY TO AFFECTED AREA Levofloxacin (Levaquin) 500 Mg Tab 500 MG PO DAILY PRN for CONGESTION Mepolizumab (Nucala) 100 Mg Inj 1 DOSE INJ MONTHLY Mesalamine (Delzicol) 400 Mg Cap 800 MG PO QID Metformin Hcl (Glucophage) 500 Mg Tab 500 MG PO BIDM, TAB WITH BREAKFAST AND SUPPER Metformin Hcl (Glucophage) 500 Mg Tab 1000 MG PO DAILY, TAB WITH LUNCH Montelukast Sodium (Singulair) 10 Mg Tab 10 MG PO DAILY, TAB Nystatin (Topical) (Nyamyc) 100,000 Unit/Gm Pow 1 APPLN TOP 2-3XSDAY Omeprazole (Prilosec) 20 Mg Cap 20 MG PO DAILY Prednisone Tab (Prednisone) 10 Mg Tab PO TAPER PRN, TAB Ranitidine HCl (Ranitidine HCl) 150 Mg Tab 150 MG PO BID Simvastatin (Simvastatin) 20 Mg Tab 20 MG PO DAILY Tiotropium [place] (Spiriva Handihaler) 30 Puff/540 Mcg Aerp 1 CAP INH DAILY [Proair 90 Mcg Act] () 2 PUFF INH Q4 PRN for SOB/Wheezing Discharge Exam Pt is comfortable and conversant on morning of discharge. Her oxygenation has improved and on incentive spirometry, which she does diligently every hour, her numbers have been improving per patient report. Her breathing is improved, her cough is diminishing, and she is eating and drinking well, no voiding issues. Per Nursing states no acute events overnight. ROS See HPI for pertinent positives and negatives. PHYSICAL EXAM GENERAL: Awake, alert, well-appearing, in no distress. Obese. HENT: Normocephalic, atraumatic. EYES: Normal conjunctiva. Sclera non-icteric. NECK: Supple. FROM. RESPIRATORY: Mild end epiratory wheeze bilaterally. No longer rhonchorous. CARDIAC: Regular rate, normal rhythm. Extremities warm and well perfused. Pulses equal. ABDOMEN: Soft, non-distended. No tenderness to palpation. No rebound or guarding. No masses. LOWER EXTREMITIES: Calves are equal size bilaterally and non-tender. No edema. No discoloration. NEURO: No motor deficits noted. SKIN: No rash or jaundice noted. Hospital Course Ms. Hoskins is a pleasant 71 F admitted for acute hypoxia. She was vacationing in [place] when she began to feel ill, flu-like symptoms , and cough. She came to our emergency department and was tachypneic and hypoxic (88) on room air, with rhonchi and wheezing - given zithromax, rocephin, solumedrol and duonebs with moderate improvement. She was found to be flu B + on labs, and subsegmental left basilar opacities were found on CXR. Decision was made to admit her and tamiflu was begun. Steroids, duonebs, oxygen and inhalers were continued. Later her sputum culture grew MRSA + and antibiotics were changed to IV Vancomycin. Pt's clinical status continued to improve. A 2-step was ordered on morning of discharge to assess patient's need for oxygen, and she was able to pass without need for oxygen. Patient was sent home with a steroid taper as well as linezolid for 5 more days. All chronic medications were continued. All chronic meds were continued. Blood sugars were controlled with ISS and basal coverage. Her A1C shows moderate control 7.3. It was a pleasure to take care of Ms. Hoskins. Total Time Spent: Greater than 30 minutes This includes examination of the patient, discharge planning, medication reconciliation, and communication with other providers. Discharge Instructions Please refer to the electronic Patient Visit Report (Discharge Instructions) for additional information. Additional Copies To Jean Cedeno D.O.; Dimitri Gomez M.D.; Manuelito Morales M.D. Resident Tracking Resident Involvement: Resident Care Provided Care Provided: Adult Hospital Medicine Reviewed: Pt Seen/Exam by Me History breathing much better. Constitutional: denies: fever Respiratory: negative: short of breath Cardiovascular: denies chest pain General Appearance: no apparent distress Respiratory: lungs clear, no respiratory distress Cardiovascular: regular rate, rhythm Neurologic/Psychiatric: alert, oriented x 3 Skin Characteristics: warm/dry Assessment/Plan Resident Physician Supervision Note: I independently interviewed and examined the patient and verified the king history and physical, reviewed labs and image studies, discussed the case with the resident Dr. Wilburn and agree with the findings and care plan. Time spent in discharge 35 min
[2017-07-23] MEDS ORDERED: INSULIN GLARGINE SOLOSTAR 100 UNITS/ML 3 ML PEN SC SCH (20:00)
[2017-07-24] MEDS ORDERED: VANCOMYCIN TROUGH ONE (17:30)
== END 2017-07-23 18:22 | disposition home or self-care (01) | DRG 177 ==
LOC: C.EDB 15:13 → UNDOADMIN 19:23 → C.MED 19:23 → ENRESERV 20:20 → C.MS4W 07-22 18:07
PROVIDERS: ADMIT Internal Medicine; ATTEND Family Medicine
DX: J10.08 Influenza due to other identified influenza virus with other specified pneumonia (principal); J96.01 Acute respiratory failure with hypoxia; J15.212 Pneumonia due to Methicillin resistant Staphylococcus aureus; K51.90 Ulcerative colitis, unspecified, without complications; J45.901 Unspecified asthma with (acute) exacerbation; Z83.3 Family history of diabetes mellitus; Z79.84 Long term (current) use of oral hypoglycemic drugs; E11.9 Type 2 diabetes mellitus without complications; Z79.52 Long term (current) use of systemic steroids; K21.9 Gastro-esophageal reflux disease without esophagitis; I10 Essential (primary) hypertension

== ENCOUNTER → 2017-07-27 | Outpatient (CLI) | payer BC ==
[~2017-07-27] MED LIST changes: +ALBINS/ INH; -ALBU1AER9 INH; -ALBU1NEB10 INH; +ALBUTEROL 90 MCG INH; -ALLERGY SHOTS; +ASC400 PO; -BXN500 PO; +CYAN100T PO; -EPP3/2 IM; +FLNIN/ NAE; -FLUT0.0529 NAE; +FLUT1INH7 INH; +LEVO1TAB33 PO; +LINE1TAB6 PO; +MEPO1INJ INJ; -MESA1CAP2 PO; +MONT1TAB3 PO; +NYST100016 TOP; +NZRCR TOP; -OMAL150S SC; +OMEP20CA9 PO; +PRED20TA2 PO; -PRLSR20 PO; +RANI150T2 PO; -RANI150T85 PO; +SIMV-151 PO; -SIMV20TA2 PO; -SNG10 PO; +SPRIN/30 INH; -SYMIN160 INH; -TIOTCAP INH; +TMF75 PO
--- NOTE | 2017-07-27 16:08 | DIAGNOSTIC IMAGING REPORT ---
CHEST 2 VIEWS ROUTINE HISTORY: 71 years-old Female J18.9 PneumoniaFollow-up on recent pneumonia, to decide the need COMPARISON: Chest radiograph 07/21/2017 TECHNIQUE: PA and lateral views of the chest FINDINGS: Cardiomediastinal and hilar silhouettes are within normal limits. Atherosclerosis of the aorta. There is improved aeration of the bilateral lung bases with persistent subsegmental left basilar opacities noted. No pneumothorax, pleural effusion or overt pulmonary edema. Bones of the chest appear grossly intact. There are degenerative changes of the spine. IMPRESSION: Improved aeration of the bilateral lung bases with persistent left basilar subsegmental opacities favoring atelectasis/scarring. The above report was generated using voice recognition software. It may contain grammatical, syntax or spelling errors. Electronically signed by: Usama Garcia M.D. 07/27/2017 4:06 PM Dictated Date/Time: 07/27/2017 4:04 PM
== END | disposition home or self-care (01) ==
LOC: C.RAD1850 15:56
PROVIDERS: ATTEND Internal Medicine
DX: J18.9 Pneumonia, unspecified organism (principal)

== ENCOUNTER → 2017-10-07 | Outpatient (CLI) | payer BC ==
[~2017-10-07] MED LIST changes: -LINE1TAB6 PO; -PRED20TA2 PO
[2017-10-07 10:38] LABS: HEMATOCRIT 42.4 % (37-47); HEMOGLOBIN 13.3 g/dL (12.0-16.0); MEAN CELL VOLUME 93.4 fL (80-100); MEAN CORPUSCULAR HEMOGLOBIN 29.3 pg (25-34); MEAN CORPUSCULAR HGB CONC 31.4 g/dl (32-36); MEAN PLATELET VOLUME 10.5 fL (7.4-10.4); PLATELET COUNT 280 K/uL (130-400); RED CELL DISTRIBUTION WIDTH CV 14.6 % (11.5-14.5); RED CELL DISTRIBUTION WIDTH SD 49.8 fL (36.4-46.3); WHITE BLOOD COUNT 7.49 K/uL (4.8-10.8)
[2017-10-07 10:57] LABS: ALBUMIN 3.8 gm/dl (3.4-5.0); ALKALINE PHOSPHATASE 77 U/L (45-117); ALT/SGPT 25 U/L (12-78); AST/SGOT 29 U/L (15-37); BLOOD UREA NITROGEN 12 mg/dl (7-18); CALCIUM 9.2 mg/dl (8.5-10.1); CARBON DIOXIDE 27 mmol/L (21-32); CREATININE 0.72 mg/dl (0.60-1.20); GLUCOSE 130 mg/dl (70-99); POTASSIUM 4.1 mmol/L (3.5-5.1); SODIUM 140 mmol/L (136-145); TOTAL PROTEIN 8.1 gm/dl (6.4-8.2)
[2017-10-07 12:03] LABS: HEMOGLOBIN A1C 6.4 % (4.5-5.6)
== END | disposition home or self-care (01) ==
LOC: C.LABBC 07:39
PROVIDERS: ATTEND Internal Medicine
DX: E11.9 Type 2 diabetes mellitus without complications (principal); K51.90 Ulcerative colitis, unspecified, without complications; E78.00 Pure hypercholesterolemia, unspecified